=== PATIENT | male | born 1930 | race Caucasian/White ===

== ENCOUNTER 2019-05-25 05:39 | Inpatient (IN) | payer MEDICARE, BC, OTHER ==
[2019-05-25] MEDS ORDERED: Albuterol/Ipratropium NEB.SOL* Albuterol 2.5 MG/Ipratropium 0.5 MG 3 ML INH ONE (05:46)
[2019-05-25] MEDS ORDERED: Magnesium Sulfate 2 GM IV* 2 GM/50 ML BAG IVPB ONE (05:46)
[2019-05-25] MEDS ORDERED: methylPREDNISolone 125 MG* 2 ML VIAL IV ONE (05:46)
[2019-05-25 06:07] LABS: ABS Basophils 0.1 10^3/ul (0-0.2); ABS Eosinophils 0.4 10^3/ul (0-0.6); ABS Lymphocytes 0.7 10^3/ul (1.0-4.8); ABS Monocytes 0.7 10^3/ul (0-0.8); ABS Neutrophils 7.9 10^3/ul (1.5-7.7); Eosinophil % 3.8 %; Hematocrit 35 % (42-52); Hemoglobin 11.9 g/dL (14.0-18.0); Lymphocyte % 6.9 %; Mean Corpuscular HGB Conc 34 g/dL (31-36); Mean Corpuscular Hemoglobin 33 pg (27-31); Mean Corpuscular Volume 97 fL (80-94); Mean Platelet Volume 6.6 fL (7.4-10.4); Platelet Count 222 10^3/uL (150-450); Red Blood Count 3.58 10^6 /uL (4.18-5.48); Red Cell Distribution Width 15 % (10-15); White Blood Count 9.6 10^3/uL (3.5-10.8)
[2019-05-25 06:13] LABS: INR 1.09 (0.82-1.09)
[2019-05-25 06:25] LABS: Albumin 3.9 g/dL (3.2-5.2); Albumin/Globulin Ratio 1.3 (1-3); BUN/Creatinine Ratio 19.5 (8-20); Calcium 8.8 mg/dL (8.6-10.3); EGFR African American 70.8 (>60); EGFR Non-African American 58.5 (>60); Potassium 3.9 mmol/L (3.5-5.0); Total Bilirubin 0.6 mg/dL (0.2-1.0); Total Protein 6.9 g/dL (6.4-8.9)
[2019-05-25 06:27] LABS: Troponin I 0.01 ng/mL (<0.03)
[2019-05-25] MEDS ORDERED: Iodixanol* (CONTRAST) 320 MG/ML 100 ML SDV IV ONE (06:53)
[2019-05-25 07:51] LABS: Activated Partial Thrombo Time 33.1 seconds (26.0-38.0)
[2019-05-25 08:07] LABS: Influenza A Molecular NEGATIVE (Negative); Influenza B Molecular NEGATIVE (Negative)
[2019-05-25] MEDS ORDERED: Acetaminophen TAB* 325 MG PO PRN (09:43)
[2019-05-25] MEDS ORDERED: Albuterol 2.5 MG/3 ML NEB.SOL* (0.083%) INH PRN (09:43)
[2019-05-25] MEDS ORDERED: Benzonatate CAP* 100 MG PO PRN (09:43)
[2019-05-25] MEDS ORDERED: Ondansetron INJ* 2 MG/ML VIAL IV PRN (09:43)
--- NOTE | 2019-05-25 09:44 | ED ---
Shortness of Breath - HPI Summary HPI Summary: Pt is a 88yo otherwise healthy male presenting to the ED with acute onset SOB last evening. He states he has been traveling from [place], [place] to visit family and stopped in [place], [place] at a hotel. He awoke this morning and felt he was worse and attempting to catch his breath. He does not wear O2 at home and has never had this happen before. Denies choking or coughing. Denies fevers, sweats and chills. Takes baby aspirin daily, but denies hx of PE. Denies CHF. Unsure of all the medications he takes, but states he believes he also takes HTN medication. He was able to call ambulance today d/t SOB and he was placed on O2 by EMS after a 74 O2 on RA sat. Denies sick contacts. Denies recent illness. Immunizations UTD. Denies any weakness, abd pain, N/V/C/D, back pain or urinary sxs. - History of Current Complaint Chief Complaint: EDShortnessOfBreath Time Seen by Provider: 05/25/19 05:41 Hx Obtained From: Patient Onset/Duration: Sudden Onset Timing: Constant Current Severity: Severe Dyspnea At: Rest Aggravating Factors: Movement - Allergy/Home Medications Allergies/Adverse Reactions: Allergies Allergy/AdvReac Type Severity Reaction Status Date / Time Quinolones Allergy Unknown Verified 05/25/19 05:48 Reaction Details Home Medications: Home Medications Aspirin EC TAB* [Ecotrin EC Low Dose 81 MG*] 81 mg PO DAILY 05/25/19 [History Confirmed 05/25/19] Atorvastatin* [Lipitor*] 80 mg PO DAILY 05/25/19 [History Confirmed 05/25/19] Cholecalciferol TAB* [Vitamin D TAB*] 2,000 units PO DAILY 05/25/19 [History Confirmed 05/25/19] Cyanocobalamin TAB* [Vitamin B12 TAB*] 500 mcg PO DAILY 05/25/19 [History Confirmed 05/25/19] Isosorbide Mononitrate ER TAB* [Imdur ER TAB*] 60 mg PO DAILY 05/25/19 [History Confirmed 05/25/19] Levothyroxine TAB* [Synthroid TAB*] 125 mcg PO DAILY 05/25/19 [History Confirmed 05/25/19] Lisinopril TAB* [Prinivil TAB*] 40 mg PO DAILY 05/25/19 [History Confirmed 05/25] Pantoprazole TAB * [Protonix TAB*] 20 mg PO DAILY 05/25/19 [History Confirmed ] amLODIPine TAB* [Norvasc 5 mg TAB*] 10 mg PO DAILY 05/25/19 [History Confirmed 05/25/19] Albuterol HFA INHALER* [Ventolin HFA Inhaler*] 8.5 gm PO Q4HR PRN 05/26/19 [ History Confirmed 05/26/19] Fluticasone-Salmeterol 250-50* [Advair Diskus 250-50*] PO BID 05/26/19 [History] Levothyroxine TAB* 125 mcg PO DAILY 05/26/19 [History Confirmed 05/26/19] Metoprolol Succinate XL TAB* [Toprol XL TAB*] 25 mg PO BID 05/26/19 [History Confirmed 05/26/19] Potassium Chlor TAB* [Klor Con ER TAB 10 MEQ*] 3 tab PO DAILY 05/26/19 [History Confirmed 05/26/19] Tamsulosin CAP* [Flomax CAP*] 0.4 mg PO DAILY 05/26/19 [History Confirmed ] PMH/Surg Hx/FS Hx/Imm Hx Previously Healthy: Yes - Immunization History Hx Pertussis Vaccination: No Immunizations Up to Date: Yes Infectious Disease History: Yes Infectious Disease History: Denies: Traveled Outside the [place] in Last 30 Days - Social History Occupation: Unemployed Lives: Alone Alcohol Use: Weekly Alcohol Amount: 2-3x/week Hx Substance Use: No Substance Use Type: Reports: None Hx Tobacco Use: No Smoking Status (MU): Former Smoker Review of Systems Negative: Fever, Chills, Fatigue, Skin Diaphoresis Negative: Sore Throat, Ear Ache Negative: Palpitations, Chest Pain Positive: Shortness Of Breath. Negative: Cough Negative: Abdominal Pain, Vomiting, Diarrhea, Nausea Negative: Rash, Bruising Neurological: Negative All Other Systems Reviewed And Are Negative: Yes Physical Exam Triage Information Reviewed: Yes Vital Signs On Initial Exam: Initial Vitals Temp Pulse Resp BP Pulse Ox 98.8 F 84 12 151/75 93 05/25/19 05:40 05/25/19 05:40 05/25/19 05:40 05/25/19 05:40 05/25/19 05:40 Vital Signs Reviewed: Yes Appearance: Positive: Well-Appearing, Well-Nourished Skin: Positive: Warm, Skin Color Reflects Adequate Perfusion Head/Face: Positive: Normal Head/Face Inspection Eyes: Positive: EOMI, Conjunctiva Clear Respiratory/Lung Sounds: Positive: Other - crackles in the R lungs throughout Cardiovascular: Positive: RRR, Pulses are Symmetrical in both Upper and Lower Extremities. Negative: Tachycardia, Leg Edema Left, Leg Edema Right Musculoskeletal: Positive: Normal, Strength/ROM Intact Neurological: Positive: Sensory/Motor Intact, Alert, Oriented to Person Place, Time Psychiatric: Positive: Normal, Affect/Mood Appropriate Procedures - Sedation Patient Received Moderate/Deep Sedation with Procedure: No Diagnostics - Vital Signs Vital Signs Temp Pulse Resp BP Pulse Ox 05/25/19 09:11 86 16 144/70 91 05/25/19 09:00 89 23 92 05/25/19 08:41 81 18 135/68 93 05/25/19 08:11 89 18 142/71 91 05/25/19 08:00 96 22 90 05/25/19 07:41 85 20 139/67 91 05/25/19 07:12 90 19 140/65 91 05/25/19 07:06 89 18 145/72 86 05/25/19 07:04 93 84 05/25/19 06:12 82 19 93 05/25/19 06:11 84 17 142/68 94 05/25/19 05:57 84 16 98 05/25/19 05:40 98.8 F 84 12 151/75 93 - Laboratory Lab Results: Lab Results 05/25/19 05/25/19 05/25/19 Range/Units 05:46 06:00 06:00 WBC 9.6 (3.5-10.8) 10^3/uL RBC 3.58 L (4.18-5.48) 10^6 /uL Hgb 11.9 L (14.0-18.0) g/dL Hct 35 L (42-52) % MCV 97 H (80-94) fL MCH 33 H (27-31) pg MCHC 34 (31-36) g/dL RDW 15 (10-15) % Plt Count 222 (150-450) 10^3/uL MPV 6.6 L (7.4-10.4) fL Neut % (Auto) 81.7 % Lymph % (Auto) 6.9 % [place] % (Auto) 6.9 % Eos % (Auto) 3.8 % Baso % (Auto) 0.7 % Absolute Neuts (auto) 7.9 H (1.5-7.7) 10^3/ul Absolute Lymphs (auto) 0.7 L (1.0-4.8) 10^3/ul Absolute Monos (auto) 0.7 (0-0.8) 10^3/ul Absolute Eos (auto) 0.4 (0-0.6) 10^3/ul Absolute Basos (auto) 0.1 (0-0.2) 10^3/ul Absolute Nucleated RBC 0.0 10^3/ul Nucleated RBC % 0.0 INR (Anticoag Therapy) (0.82-1.09) APTT (26.0-38.0) seconds Sodium 140 (135-145) mmol/L Potassium 3.9 (3.5-5.0) mmol/L Chloride 110 (101-111) mmol/L Carbon Dioxide 22 (22-32) mmol/L Anion Gap 8 (2-11) mmol/L BUN 23 (6-24) mg/dL Creatinine 1.18 H (0.67-1.17) mg/dL Est GFR ( Amer) 70.8 (>60) Est GFR (Non-Af Amer) 58.5 (>60) BUN/Creatinine Ratio 19.5 (8-20) Glucose 114 H (70-100) mg/dL Lactic Acid (0.5-2.0) mmol/L Calcium 8.8 (8.6-10.3) mg/dL Total Bilirubin 0.60 (0.2-1.0) mg/dL AST 21 (13-39) U/L ALT 14 (7-52) U/L Alkaline Phosphatase 60 (34-104) U/L Troponin I 0.01 (<0.03) ng/mL B-Natriuretic Peptide (<=100) pg/mL Total Protein 6.9 (6.4-8.9) g/dL Albumin 3.9 (3.2-5.2) g/dL Globulin 3.0 (2-4) g/dL Albumin/Globulin Ratio 1.3 (1-3) Influenza A (Rapid) Negative (Negative) Influenza B (Rapid) Negative (Negative) 05/25/19 05/25/19 05/25/19 Range/Units 06:00 06:00 06:00 WBC (3.5-10.8) 10^3/uL RBC (4.18-5.48) 10^6 /uL Hgb (14.0-18.0) g/dL Hct (42-52) % MCV (80-94) fL MCH (27-31) pg MCHC (31-36) g/dL RDW (10-15) % Plt Count (150-450) 10^3/uL MPV (7.4-10.4) fL Neut % (Auto) % Lymph % (Auto) % [place] % (Auto) % Eos % (Auto) % Baso % (Auto) % Absolute Neuts (auto) (1.5-7.7) 10^3/ul Absolute Lymphs (auto) (1.0-4.8) 10^3/ul Absolute Monos (auto) (0-0.8) 10^3/ul Absolute Eos (auto) (0-0.6) 10^3/ul Absolute Basos (auto) (0-0.2) 10^3/ul Absolute Nucleated RBC 10^3/ul Nucleated RBC % INR (Anticoag Therapy) 1.09 (0.82-1.09) APTT 33.1 (26.0-38.0) seconds Sodium (135-145) mmol/L Potassium (3.5-5.0) mmol/L Chloride (101-111) mmol/L Carbon Dioxide (22-32) mmol/L Anion Gap (2-11) mmol/L BUN (6-24) mg/dL Creatinine (0.67-1.17) mg/dL Est GFR ( Amer) (>60) Est GFR (Non-Af Amer) (>60) BUN/Creatinine Ratio (8-20) Glucose (70-100) mg/dL Lactic Acid 0.6 (0.5-2.0) mmol/L Calcium (8.6-10.3) mg/dL Total Bilirubin (0.2-1.0) mg/dL AST (13-39) U/L ALT (7-52) U/L Alkaline Phosphatase (34-104) U/L Troponin I (<0.03) ng/mL B-Natriuretic Peptide 290 H (<=100) pg/mL Total Protein (6.4-8.9) g/dL Albumin (3.2-5.2) g/dL Globulin (2-4) g/dL Albumin/Globulin Ratio (1-3) Influenza A (Rapid) (Negative) Influenza B (Rapid) (Negative) Result Diagrams: 05/28/19 06:06 05/28/19 06:06 Lab Statement: Any lab studies that have been ordered have been reviewed, and results considered in the medical decision making process. Course/Dx - Course Course Of Treatment: On physical exam, patient appears well, and in NAD. Pt noted to have crackles over the R lung without adventitious sounds of the L lung. Kept on 4L in ED and sats 91-94%. Labs obtained which show a slightly low H and H with a BNP of 290. CXR obtained: EKG sinus rhythm with a rate of 81. Nonspecific intraventricular conduction delay. [id number]. Assessed for PE and CTA obtained. IMPRESSION: 1. LIMITED STUDY, NO EVIDENCE FOR CENTRAL PULMONARY EMBOLISM. 2. RIGHT UPPER LOBE INFILTRATE SUGGESTIVE OF PNEUMONIA. RECOMMEND FOLLOW-UP CHEST X-RAYS. TO RESOLUTION. 3. FINDINGS MOST CONSISTENT WITH SUPERIMPOSED PULMONARY EDEMA. 4. FINDINGS SUGGESTIVE OF PULMONARY ARTERY HYPERTENSION. 5. 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 6. ENLARGED MEDIASTINAL OR HILAR LYMPH NODES POSSIBLY REACTIVE, CONSIDER SARCOIDOSIS. ALTHOUGH A NEOPLASTIC PROCESS CANNOT BE RULED OUT. Pt continues to be hypoxic and discussed with Dr. Carrillo who will admit for hypoxia and PNA. Attempted to request records from [facility], however clinic is closed until Tuesday. - Diagnoses Provider Diagnoses: Hypoxia, Pneumonia Discharge ED - Sign-Out/Discharge Documenting (check all that apply): Patient Departure - Discharge Plan Condition: Fair Disposition: ADMITTED TO [facility] - Billing Disposition and Condition Condition: FAIR Disposition: Admitted to [facility] - Attestation Statements Provider Attestation: I was available for consult. This patient was seen by the BETTY. The patient was not presented to, seen by, or examined by me. Oleksandr Cruz MD
[2019-05-25 10:57] LABS: Folate 15.48 ng/mL (>3.99)
[2019-05-25] MEDS ORDERED: cefTRIAXone VIAL(*) 1,000 MG VIAL IVPB SCH (11:00)
[2019-05-25] MEDS: Enoxaparin(*) 40 MG/0.4 ML SYR SUBCUT SCH (11:10)
[2019-05-25] MEDS: Albuterol/Ipratropium NEB.SOL* Albuterol 2.5 MG/Ipratropium 0.5 MG 3 ML INH SCH ×3 (11:23→19:56)
--- NOTE | 2019-05-25 12:26 | ECHO ---
*[facility]* [place] [address] Fax #: [phone] Transthoracic Echocardiogram Patient: Tip Thorne : 1930 Study Date: 05/25/2019 Age: 88 Gender: M HR: 87 bpm Height: 74 in /188 cm BSA: 2.08 m^2 Weight: 179.6 lb /81.6 kg BMI: 23.1 kg/m^2 *Psychological Examiner: * Sheri Pyle [facility] *Referring Physician: * Tip Jones *Reading Physician: * Alan Ramos MD Indications: Congestive Heart Failure. History: Risk factors: Former tobacco use. Conclusions Summary: - Left ventricle: The cavity size is normal. Wall thickness is mildly increased. Systolic function is normal. The estimated ejection fraction is 60-65%. Minimal area of Hypokinesis of the distal apical inferior and distal inferior apical myocardium. Consider apical thinning/normal variant versus small remote infarct. Features are consistent with a pseudonormal left ventricular filling pattern, with concomitant abnormal relaxation and increased filling pressure (grade 2 diastolic dysfunction). - Right ventricle: Systolic pressure is moderately increased. - Left atrium: The atrium is severely dilated. - Atrial septum: The atrial septum appears aneurysmal. A PFO is demonstrated by color Doppler. - Mitral valve: The findings are consistent with mild stenosis due to restriction of the posterior leaflet due to annular calcium. There is mild regurgitation. The mean diastolic gradient is 5.0 mm Hg. The peak diastolic gradient is 10.0 mm Hg. The valve area by pressure half-time is 2.0 cm^2. - Aortic valve: The findings are consistent with mild stenosis. - Tricuspid valve: There is mild regurgitation. - Ascending aorta: The ascending aorta is mildly dilated. - Pericardium, extracardiac: There is a pleural effusion. - Pulmonary arteries: Systolic pressure is moderately increased. Study data: Transthoracic echocardiogram. Procedure: Transthoracic echocardiography was performed. Image quality was good. Complete 2D, spectral Doppler, and color flow Doppler. Location: Emergency department. Patient status: Inpatient. Patient room number: ED-12. No prior study is available for comparison. Rhythm: Normal sinus rhythm. Findings Left ventricle: The cavity size is normal. Wall thickness is mildly increased. Systolic function is normal. The estimated ejection fraction is 60-65%. Regional wall motion abnormalities: Minimal area of Hypokinesis of the distal apical inferior and distal inferior apical myocardium. Consider apical thinning/normal variant versus small remote infarct. Hypokinesis of the apical myocardium. Features are consistent with a pseudonormal left ventricular filling pattern, with concomitant abnormal relaxation and increased filling pressure (grade 2 diastolic dysfunction). Right ventricle: The cavity size is mildly dilated. Systolic function is normal. Systolic pressure is moderately increased. Left atrium: The atrium is severely dilated. Right atrium: The atrium is moderately dilated. Atrial septum: The atrial septum appears aneurysmal. A PFO is demonstrated by color Doppler. Mitral valve: The Mitral valve annulus appears calcified. The leaflets are mildly thickened. The findings are consistent with mild stenosis due to restriction of the posterior leaflet due to annular calcium. There is mild regurgitation. Aortic valve: The valve is trileaflet. The leaflets are mildly thickened. Thickening, consistent with sclerosis. Left coronary cusp mobility is mildly restricted. The findings are consistent with mild stenosis. There is trace regurgitation. Tricuspid valve: The leaflets are normal thickness. There is no evidence of stenosis. There is mild regurgitation. Pulmonic valve: The leaflets are normal thickness. There is no evidence of stenosis. There is trace regurgitation. Aorta: Aortic root: The aortic root is appears normal. Ascending aorta: The ascending aorta is mildly dilated. Aortic arch: The aortic arch is appears normal in size. Pericardium: The amount of pericardial fluid appears to be at the upper limits of normal. There is a pleural effusion. Pulmonary arteries: The main pulmonary artery is normal-sized. Systolic pressure is moderately increased. Systemic veins: Inferior vena cava: The vessel is mildly dilated. There is (>= 50%) respiratory change in the IVC dimension. Measurements Left ventricle Value Ref Aortic valve Value Ref VIMAL, LAX 5.2 cm 4.2 - 5.8 Aneesh diam, ED 2.5 cm ----- ESD, LAX 3.9 cm 2.5 - 4.0 Peak v, S 1.9 m/sec ----- FS, LAX (L) 24 % 25 - 43 VTI, S 40.3 cm ----- PW, ED, LAX (H) 1.1 cm 0.6 - 1.0 Mean grad, S 7.0 mm Hg ----- FS (L) 24 % 25 - 43 Peak grad, S 14.4 mm Hg ----- PW, ED (H) 1.1 cm 0.6 - 1.0 LVOT/AV, VTI ratio 0.69 ----- E', lat aneesh, TDI (L) 9.6 cm/sec >=10.0 BERRY, VTI 2.18 cm^2 --- -- E/e', lat aneesh, 16 BERRY, Vmax 2.28 cm^2 ----- TDI E', med aneesh, TDI 7.3 cm/sec >=7.0 Mitral valve Value Ref E/e', med aneesh, 21 Peak E 1.52 m/sec ----- TDI Peak A 1.62 m/sec ----- E', avg, TDI 8.5 cm/sec Decel time 306 ms ----- E/e', avg, TDI (H) 18 <=14 PHT 99 ms --- -- Mean grad, D 5.0 mm Hg ----- LVOT Value Ref Peak grad, D 10.0 mm Hg ----- Diam, S 2.00 cm Peak E/A ratio 0.9 ----- Area 3.1 cm^2 MVA, PHT 2.0 cm^2 ----- Peak humberto, S 1.38 m/sec VTI, S 28.0 cm Pulmonic valve Value Ref Peak grad, S 8 mm Hg Peak v, S 1.14 m/sec ----- Mean grad, S 4 mm Hg Peak grad, S 5.0 mm Hg ----- SV 88 ml SV/bsa 42 ml/m^2 Tricuspid valve Value Ref TR peak v (H) 3.2 m/sec <=2.8 Ventricular septum Value Ref Peak RV-RA grad, S 41 mm Hg ----- IVS, ED (H) 1.2 cm 0.6 - 1.0 Aortic root Value Ref Right ventricle Value Ref Root diam 3.4 cm <4.2 VIMAL, LAX 4.1 cm VIMAL minor ax, A4C (H) 3.6 cm 1.9 - 3.5 Ascending aorta Value Ref mid AAo AP diam, S 3.7 cm ----- Pressure, S 49 mm Hg Aortic arch Value Ref Left atrium Value Ref Arch diam 2.6 cm ----- AP dim, ES (H) 4.80 cm 3.00 - 4.00 Decending aorta Value Ref ML dim, A4C 5.5 cm Joelle peak humberto 0.59 m/sec ----- SI dim, A4C 7.2 cm Vol/bsa, ES, 1-p (H) 57 ml/m^2 12 - 37 Pulmonary artery Value Ref A4C Pressure, S 44.0 mm Hg ----- Vol/bsa, ES, A/L (H) 61 ml/m^2 16 - 34 Inferior vena cava Value Ref Right atrium Value Ref Diam 2.3 cm ----- SI dim, ES (H) 6.0 cm 3.4 - 5.3 ML dim, ES, A4C (H) 4.5 cm 2.6 - 4.4 Estimated RAP 8 mm Hg Legend: (L) and (H) carissa values outside specified reference range. Prepared and electronically signed by Alan Ramos MD 05/25/2019 12:25
[2019-05-25] MEDS: cefTRIAXone* 1 GM in NS 0.9% 50 ML BAG IVPB SCH (12:30)
--- NOTE | 2019-05-25 13:18 | HP ---
HISTORY AND PHYSICAL: DATE OF ADMISSION: 05/25/19 PRIMARY CARE DOCTOR: RUFINA Dior of [facility], phone number [phone]. MY ATTENDING PHYSICIAN WHILE IN THE HOSPITAL: Dr. Oracio Carrillo* (dictated by JAZZ Booker). OUTPATIENT DRYWALL APPLICATION SUPERVISOR: Dr. Ronald Butler, [place], [place]. CHIEF COMPLAINT: Shortness of breath x1 week. HISTORY OF PRESENT ILLNESS: Mr. Thorne is an 88-year-old male with past medical history significant for COPD non-oxygen dependent, WA in 2003, and hypertension, who presents to the emergency department from his hotel room after for approximately the past week he has noticed increased difficulty breathing accompanied by bilateral swelling in his legs and significantly decreased exercise tolerance. He states he is usually able to walk about 15 minutes on a treadmill without becoming short of breath, but now he is not able to walk very far at all being limited by shortness of breath and his activity level has gone down. Significantly related to this, he states there are no significant changes that he has noted in the last 2 weeks including changes to his diet, including high-salt meals, no changes to his medications. He has not missed any medications. No one around him has been sick. He did receive his flu shot this year. He has not had any fevers or chills. No upper respiratory symptoms. He has not had any cough per his report, but he does cough during the interview. He denies any sputum production. He has not had any subjective fevers or chills. He has not had any chest pain. The patient did not have any long car trips or immobilization ending 2 weeks ago, but has had again a decrease in his activity level related to his shortness of breath. The patient came into the emergency department due to worsening in his shortness breath to the point he did not feel like he is able to keep up with his breathing and inability to sleep overnight in his hotel room. At his hotel, the patient was found to be markedly hypoxic. He was placed on 5 L of oxygen and he was able to maintain his oxygen saturation above 90%. In the emergency department, the patient was given inhalers, steroids, magnesium, and had a CT of his chest, which showed significant interstitial opacification with a right upper lobe possible infiltrate as well as a bilateral pleural effusions and possible interstitial edema. Due to concern for acute hypoxic respiratory failure, we were asked to evaluate the patient for admission in the hospital. PAST MEDICAL HISTORY: COPD, history of WA, coronary artery disease, hypertension, hypothyroidism, GERD. PAST SURGICAL HISTORY: Stent in 2003. MEDICATIONS: 1. Synthroid 125 mcg p.o. daily. 2. Aspirin 81 mg p.o. daily. 3. Imdur 60 mg p.o. daily. 4. Protonix 40 mg p.o. daily. 5. Klor-Con 4 mEq p.o. daily. 6. Advair unknown dose 1 puff inhalation b.i.d. 7. Zyrtec 10 mg p.o. daily as needed. 8. Norvasc 10 mg p.o. daily as needed. 9. Lipitor 80 mg p.o. daily. 10. Lisinopril 40 mg p.o. daily. 11. Metoprolol 50 mg p.o. daily. 12. Vitamin B12 500 units p.o. daily. 13. Vitamin D 2000 units p.o. daily. 14. Tamsulosin 0.4 mg p.o. daily. FAMILY HISTORY: The patient's mother of brain tumor. The patient's father of suicide after being alcoholic. The patient has a brother and sister who are alive of approximately same age as him and have a "age-related complaints." SOCIAL HISTORY: The patient smoked for approximately 30 pack years, but quit 30 years ago. The patient drinks approximately 4 to 5 glasses of wine weekly. The patient used to use marijuana and LSD in college, but has not had any recent illicit drug use. 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 The patient is x2 and has 3 children. The patient's surrogate decision maker will be his daughter, Lupe Thorne. He would like to be a full code. REVIEW OF SYSTEMS: A 14-point review of systems reviewed and is negative except as above in the HPI. PHYSICAL EXAMINATION GENERAL: The patient is an 88-year-old male, who appears as stated age and sitting comfortably in the bed in no acute distress. VITAL SIGNS: At the time of evaluation, temperature 98.8, pulse rate 90, respiratory rate 18, oxygen saturation 95% on 5 L, blood pressure 142/71. HEENT: Head: Normocephalic, atraumatic. Sclerae anicteric. No conjunctival injection. Nasal mucosa moist. Oral mucosa moist. No pharyngeal erythema, discharge, or exudate. NECK: Supple, nontender. No lymphadenopathy. No carotid bruit auscultated. No JVD. RESPIRATORY: Slight expiratory wheezing heard in the right upper lobe. No other wheezes, rales, or rhonchi. Good air exchange bilaterally. HEART: Regular rate and rhythm. Grade 3/6 holosystolic murmur heard best at the apex. No adventitious lung sounds. Bilateral lower extremity edema, 2+ on the left, 3+ on the right. No bilateral calf tenderness noted. No palpable cords. Pulses 2+ in dorsalis pedis, posterior tibialis, and radial areas. ABDOMEN: Soft, nontender, nondistended. Bowel sounds present. Normoactive in all 4 quadrants. No hepatosplenomegaly. No abdominal bruits auscultated. No hepatojugular reflux. GENITOURINARY: No suprapubic tenderness or CVA tenderness. NEURO: Cranial nerves II through XII grossly intact. No focal deficits. Alert and oriented x3. SKIN: Clean, dry, intact. No rashes. PSYCHIATRIC: Pleasant and cooperative. DIAGNOSTIC STUDIES/LAB DATA: White blood cell count 9.6, hemoglobin 11.9, MCV 97, platelet count 222, INR 1.09, aPTT 33.1. Sodium 140, potassium 3.9, chloride 110, carbon dioxide 22, anion gap 9, BUN 23, creatinine 1.18, glucose 114, lactic acid 0.6, calcium 8.8, bilirubin 0.6, AST 21, ALT 14, alkaline phosphatase 60. Troponin I 0.01, BNP 290, protein 3.9, albumin 3.9, globulin 3.0. Influenza A and B negative. EKG shows normal sinus rhythm, signs of right-sided heart strain including S1Q3T3, no ST segment elevation or depression. No hypertrophy. Possible left atrial enlargement. Intraventricular conduction delay. Chest x-ray read as right upper lobe pneumonia, left lower lobe pneumonia with bilateral pleural effusions. Chest thorax CTA read as limited study. No evidence of central pulmonary embolism. Right upper lobe infiltrate suggestive of pneumonia. Recommend followup chest x- rays to resolution. Findings most consistent with superimposed pulmonary edema. 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 There are also moderate-sized pleural effusions noted in the body of the report. ASSESSMENT/PLAN/IMPRESSION: Mr. Thorne is an 88-year-old male with past medical significant for chronic obstructive pulmonary disease, coronary artery disease with myocardial infarction and hypertension, who presented to the emergency department with 1 week of worsening shortness of breath and hypoxic respiratory failure, who had been admitted to the hospital for oxygen therapy and treatment of mild chronic obstructive pulmonary disease exacerbation pneumonia and possible congestive heart failure exacerbation. 1. Acute hypoxic respiratory failure, components of likely pneumonia, congestive heart failure, and chronic obstructive pulmonary disease. The patient's chest CT is not specific for one pathology at this time. The patient does have pleural effusion with possible interstitial edema and does have lower extremity swelling. This could be related to right heart failure from chronic hypoxic lung disease that may or may not be untreated. An echocardiogram will help to evaluate this; however, this has gotten worse over the past week and it is possible that he is also having congestive heart failure exacerbation. Clarifying his ejection fraction will be useful. An echocardiogram has been ordered; this will also assess for signs of right-sided heart strain and to further elucidate the above-noted murmur. The patient has slight wheezing on exam after receiving steroids and inhalers. Based on the appearance of the patient's chest x-ray, pneumonia, particularly atypical causes of pneumonia are possible. The patient will be treated for community-acquired pneumonia. The patient had legionella and Strep pneumo antigen. The patient will also be diuresed, have strict I's and O's and daily weights. The patient will be continued on his blood pressure medications. The patient's troponin was negative and it does not appear that he is having acute myocardial infarction. There is possibility of sarcoidosis also on his chest CT, though this is already being treated given the patient will be getting steroids for his chronic obstructive pulmonary disease exacerbation; however, followup chest imaging should be undertaken through his radiation control technician to assess for possibility of this being a chronic cause. Given the patient's smoking history and asbestos history as well, the possibility of lung carcinoma is not excluded. Previous CT scan will tentatively be obtained from his radiation control technician' s records in order to assess and compare for this. The patient does have asymmetrical leg swelling and incomplete CTA of his chest. Lower extremity Dopplers will be obtained to assess for blood clot and further imaging of the chest will be considered in conjunction with the above-mentioned echocardiogram if there is a deep vein thrombosis. A consult will be requested from Dr. Santa García of Pulmonology if available. 2. History of myocardial infarction. Continue secondary prevention with Lipitor and aspirin. Check echocardiogram for possible heart failure, reduced ejection fraction. 3. Hypertension. Continue the patient's Imdur, lisinopril, metoprolol, and Norvasc. 4. Chronic obstructive pulmonary disease. Hold the patient's chronic inhalers at this time. Triple inhaler therapy may be indicated for this patient. 5. Hyperlipidemia. Continue the patient's Lipitor. 6. Hypothyroidism. Continue the patient's Synthroid. 7. DVT prophylaxis. Lovenox subcu. 8. FEN. The patient will have heart healthy diet without caffeine. No fluids are indicated at this time. TIME SPENT: Approximately 60 minutes were spent on this admission, 30 of which was spent [id number] with the patient obtaining history and physical and discussing treatment plan. This plan was discussed with my attending, Dr. Oracio Carrillo, and he is in agreement. JAZZ BOOKER [id number]/CPS #: [id number] MTDD
[2019-05-25] MEDS: DOXYcycline IV* 100 MG in NS 0.9% 250 ML* 250 ML IVPB SCH ×2 (14:37→23:47)
[2019-05-25] MEDS: Furosemide IV* 10 MG/ML VIAL (40 MG) IV SLOW PU SCH (17:08)
[2019-05-25] MEDS ORDERED: Albuterol/Ipratropium NEB.SOL* Albuterol 2.5 MG/Ipratropium 0.5 MG 3 ML INH PRN (20:22)
[2019-05-25] MEDS: guaiFENesin ER TAB 600 MG PO SCH (21:53)
[2019-05-25] MEDS: Metoprolol Tartrate TAB* 25 MG PO SCH (21:54)
[2019-05-26 05:45] LABS: ABS Lymphocytes 0.5 10^3/ul (1.0-4.8); ABS Monocytes 0.7 10^3/ul (0-0.8); ABS Neutrophils 11.1 10^3/ul (1.5-7.7); Eosinophil % 0.1 %; Hematocrit 33 % (42-52); Hemoglobin 11.3 g/dL (14.0-18.0); Lymphocyte % 3.8 %; Mean Corpuscular HGB Conc 34 g/dL (31-36); Mean Corpuscular Hemoglobin 33 pg (27-31); Mean Corpuscular Volume 98 fL (80-94); Mean Platelet Volume 6.5 fL (7.4-10.4); Platelet Count 202 10^3/uL (150-450); Red Blood Count 3.42 10^6 /uL (4.18-5.48); Red Cell Distribution Width 15 % (10-15); White Blood Count 12.3 10^3/uL (3.5-10.8)
[2019-05-26 06:04] LABS: BUN/Creatinine Ratio 24.8 (8-20); Calcium 8.8 mg/dL (8.6-10.3); EGFR African American 71.5 (>60); EGFR Non-African American 59.1 (>60); Magnesium 1.9 mg/dL (1.9-2.7)
[2019-05-26] MEDS: Levothyroxine TAB* 125 MCG TAB PO SCH (06:04)
[2019-05-26] MEDS: Furosemide IV* 10 MG/ML VIAL (40 MG) IV SLOW PU SCH ×2 (08:16→16:43)
[2019-05-26] MEDS: Pantoprazole TAB * 40 MG TAB PO SCH (08:17)
[2019-05-26] MEDS: Metoprolol Tartrate TAB* 25 MG PO SCH ×2 (08:17→22:04)
[2019-05-26] MEDS: Aspirin EC TAB* 81 MG TAB.EC PO SCH (08:17)
[2019-05-26] MEDS: Cyanocobalamin TAB* 500 MCG PO SCH (08:17)
[2019-05-26] MEDS: Isosorbide Mononitrate ER TAB* 60 MG PO SCH (08:17)
[2019-05-26] MEDS: Atorvastatin* 80 MG TAB PO SCH (08:17)
[2019-05-26] MEDS: amLODIPine TAB* 5 MG PO SCH (08:17)
[2019-05-26] MEDS: Lisinopril TAB* 10 MG PO SCH (08:18)
[2019-05-26] MEDS: guaiFENesin ER TAB 600 MG PO SCH ×2 (08:18→22:04)
[2019-05-26] MEDS: Enoxaparin(*) 40 MG/0.4 ML SYR SUBCUT SCH (08:18)
[2019-05-26] MEDS: Cholecalciferol TAB* 1000 UNITS PO SCH (08:18)
[2019-05-26] MEDS: cefTRIAXone* 1 GM in NS 0.9% 50 ML BAG IVPB SCH (11:45)
--- NOTE | 2019-05-26 12:35 | PN ---
Subjective Date of Service: 05/26/19 Interval History: patient continues to report shortness of breath worse with exertion. denies fever or chills overnight. Denies abd pain n/v/d. Reports that he is upset about medication list, reports that he only has an old list in wallet that is not accurate and is concerned that he is not receiving the correct medications. Reports that he is feeling very anxious about this. Nursing staff notified and will obtain medication list from [facility] pharmacy. Patient reported to nursing staff that he had chest pressure. Patient was re-evaluated at bedside, states that he had pressure in his chest lasted a few seconds and now is resolved. Patient reports that he believes that it is related to his anxiety. EKG - ordered - no changes from previous EKG. Family History: Unchanged from Admission Social History: Unchanged from Admission Past Medical History: Unchanged from Admission Objective Active Medications: Acetaminophen (Tylenol Tab*) 650 mg PO Q6H PRN PRN Reason: MILD PAIN or TEMP > 100.4 Albuterol/Ipratropium (Duoneb (Albuterol 2.5 Mg/Ipratropium 0.5 Mg)) 1 neb INH Q4H PRN PRN Reason: SOB/WHEEZING Amlodipine Besylate (Norvasc Tab*) 10 mg PO DAILY [facility] Last Admin: 05/26/19 08:17 Dose: 10 mg Aspirin (Aspirin Ec Tab*) 81 mg PO DAILY [facility] Last Admin: 05/26/19 08:17 Dose: 81 mg Atorvastatin Calcium (Lipitor*) 80 mg PO DAILY [facility] Last Admin: 05/26/19 08:17 Dose: 80 mg Benzonatate (Tessalon Cap*) 100 mg PO BID PRN PRN Reason: COUGH Cholecalciferol (Vitamin D Tab*) 2,000 units PO DAILY [facility] Last Admin: 05/26/19 08:18 Dose: 2,000 units Cyanocobalamin (Vitamin B12 Tab*) 500 mcg PO DAILY [facility] Last Admin: 05/26/19 08:17 Dose: 500 mcg Enoxaparin Sodium (Lovenox(*)) 40 mg SUBCUT DAILY [facility] Last Admin: 05/26/19 08:18 Dose: 40 mg Furosemide (Lasix Iv*) 40 mg IV SLOW PU 0800,1700 [facility] Last Admin: 05/26/19 08:16 Dose: 40 mg Guaifenesin (Mucinex*) 1,200 mg PO BID [facility] Last Admin: 05/26/19 08:18 Dose: 1,200 mg Doxycycline Hyclate 100 mg/ (Sodium Chloride) 250 mls @ 250 mls/hr IVPB Q12H [facility] Last Admin: 05/25/19 23:47 Dose: 250 mls/hr Ceftriaxone Sodium 1 gm/ (Sodium Chloride) 50 mls @ 100 mls/hr IVPB Q24H [facility] Last Admin: 05/26/19 11:45 Dose: 100 mls/hr Isosorbide Mononitrate (Imdur Er Tab*) 60 mg PO DAILY [facility] Last Admin: 05/26/19 08:17 Dose: 60 mg Levothyroxine Sodium (Synthroid Tab*) 125 mcg PO DAILY@0600 [facility] Last Admin: 05/26/19 06:04 Dose: 125 mcg Lisinopril (Prinivil Tab*) 40 mg PO DAILY [facility] Last Admin: 05/26/19 08:18 Dose: 40 mg Metoprolol Tartrate (Lopressor Tab*) 25 mg PO BID [facility] Last Admin: 05/26/19 08:17 Dose: 25 mg Ondansetron HCl (Zofran Inj*) 4 mg IV Q6H PRN PRN Reason: NAUSEA Pantoprazole Sodium (Protonix Tab*) 40 mg PO DAILY [facility] Last Admin: 05/26/19 08:17 Dose: 40 mg Prednisone (Deltasone Tab*) 60 mg PO DAILY [facility] Last Admin: 05/26/19 08:18 Dose: 60 mg Vital Signs - 8 hr 05/26/19 05/26/19 05/26/19 07:25 08:00 10:41 Temperature 98.4 F 97.4 F Pulse Rate 87 81 Respiratory 16 16 16 Rate Blood Pressure 134/66 137/62 (mmHg) O2 Sat by Pulse 94 98 Oximetry Oxygen Devices in Use Now: Nasal Cannula Appearance: alert and oriented x 3, no acute distress Eyes: No Scleral Icterus Ears/Nose/Mouth/Throat: Clear Oropharnyx, Mucous Membranes Moist Neck: NL Appearance and Movements; NL JVP, Trachea Midline Respiratory: Symmetrical Chest Expansion and Respiratory Effort, - - t/o bilat with few exp wheezes Cardiovascular: NL Sounds; No Murmurs; No JVD Abdominal: NL Sounds; No Tenderness; No Distention Extremities: No Clubbing, Cyanosis, - - + 2 pitting edema to bilat lower legs Skin: No Rash or Ulcers Neurological: Alert and Oriented x 3 Nutrition: Taking PO's Result Diagrams: 05/27/19 06:06 05/26/19 05:29 Additional Lab and Data: Lab Results 05/25/19 05/25/19 05/25/19 Range/Units 05:46 06:00 06:00 WBC 9.6 (3.5-10.8) 10^3/uL RBC 3.58 L (4.18-5.48) 10^6 /uL Hgb 11.9 L (14.0-18.0) g/dL Hct 35 L (42-52) % MCV 97 H (80-94) fL MCH 33 H (27-31) pg MCHC 34 (31-36) g/dL RDW 15 (10-15) % Plt Count 222 (150-450) 10^3/uL MPV 6.6 L (7.4-10.4) fL Neut % (Auto) 81.7 % Lymph % (Auto) 6.9 % Dane % (Auto) 6.9 % Eos % (Auto) 3.8 % Baso % (Auto) 0.7 % Absolute Neuts (auto) 7.9 H (1.5-7.7) 10^3/ul Absolute Lymphs (auto) 0.7 L (1.0-4.8) 10^3/ul Absolute Monos (auto) 0.7 (0-0.8) 10^3/ul Absolute Eos (auto) 0.4 (0-0.6) 10^3/ul Absolute Basos (auto) 0.1 (0-0.2) 10^3/ul Absolute Nucleated RBC 0.0 10^3/ul Nucleated RBC % 0.0 INR (Anticoag Therapy) (0.82-1.09) APTT (26.0-38.0) seconds Sodium 140 (135-145) mmol/L Potassium 3.9 (3.5-5.0) mmol/L Chloride 110 (101-111) mmol/L Carbon Dioxide 22 (22-32) mmol/L Anion Gap 8 (2-11) mmol/L BUN 23 (6-24) mg/dL Creatinine 1.18 H (0.67-1.17) mg/dL Est GFR ( Amer) 70.8 (>60) Est GFR (Non-Af Amer) 58.5 (>60) BUN/Creatinine Ratio 19.5 (8-20) Glucose 114 H (70-100) mg/dL Lactic Acid (0.5-2.0) mmol/L Calcium 8.8 (8.6-10.3) mg/dL Total Bilirubin 0.60 (0.2-1.0) mg/dL AST 21 (13-39) U/L ALT 14 (7-52) U/L Alkaline Phosphatase 60 (34-104) U/L Troponin I 0.01 (<0.03) ng/mL B-Natriuretic Peptide (<=100) pg/mL Total Protein 6.9 (6.4-8.9) g/dL Albumin 3.9 (3.2-5.2) g/dL Globulin 3.0 (2-4) g/dL Albumin/Globulin Ratio 1.3 (1-3) Influenza A (Rapid) Negative (Negative) Influenza B (Rapid) Negative (Negative) 05/25/19 05/25/19 05/25/19 Range/Units 06:00 06:00 06:00 WBC (3.5-10.8) 10^3/uL RBC (4.18-5.48) 10^6 /uL Hgb (14.0-18.0) g/dL Hct (42-52) % MCV (80-94) fL MCH (27-31) pg MCHC (31-36) g/dL RDW (10-15) % Plt Count (150-450) 10^3/uL MPV (7.4-10.4) fL Neut % (Auto) % Lymph % (Auto) % Dane % (Auto) % Eos % (Auto) % Baso % (Auto) % Absolute Neuts (auto) (1.5-7.7) 10^3/ul Absolute Lymphs (auto) (1.0-4.8) 10^3/ul Absolute Monos (auto) (0-0.8) 10^3/ul Absolute Eos (auto) (0-0.6) 10^3/ul Absolute Basos (auto) (0-0.2) 10^3/ul Absolute Nucleated RBC 10^3/ul Nucleated RBC % INR (Anticoag Therapy) 1.09 (0.82-1.09) APTT 33.1 (26.0-38.0) seconds Sodium (135-145) mmol/L Potassium (3.5-5.0) mmol/L Chloride (101-111) mmol/L Carbon Dioxide (22-32) mmol/L Anion Gap (2-11) mmol/L BUN (6-24) mg/dL Creatinine (0.67-1.17) mg/dL Est GFR ( Amer) (>60) Est GFR (Non-Af Amer) (>60) BUN/Creatinine Ratio (8-20) Glucose (70-100) mg/dL Lactic Acid 0.6 (0.5-2.0) mmol/L Calcium (8.6-10.3) mg/dL Total Bilirubin (0.2-1.0) mg/dL AST (13-39) U/L ALT (7-52) U/L Alkaline Phosphatase (34-104) U/L Troponin I (<0.03) ng/mL B-Natriuretic Peptide 290 H (<=100) pg/mL Total Protein (6.4-8.9) g/dL Albumin (3.2-5.2) g/dL Globulin (2-4) g/dL Albumin/Globulin Ratio (1-3) Influenza A (Rapid) (Negative) Influenza B (Rapid) (Negative) Microbiology and Other Data: Microbiology 05/26/19 05:47 Gram Stain - Final Sputum 05/25/19 17:15 Legionella Urinary Antigen - Final Urine Negative Legionella Antigen Streptococcus pneumoniae Ag Screen - Final Negative S. pneumo Antigen Assess/Plan/Problems-Billing Assessment: Mr. Thorne is an 88 y.o male with pmhx significant for htn, [place] 2004 and copd who presented to the ER with shortness of breath and leg swelling. - Patient Problems (1) Respiratory failure with hypoxia Current Visit: Yes Status: Acute Code(s): J96.91 - RESPIRATORY FAILURE, UNSPECIFIED WITH HYPOXIA SNOMED Code(s): 09921717930448747 Comment: Likely a combination of RUL pneumonia and exacerbation of COPD, with possibe underlying CHF -Will contiue to treat with doxycycline and ceftriaxone - Blood culture pending - Urine Negative for strep and legionella - Sputum with gram negative coccobacilli - continue breathing treatments and supplemental oxygen as needed (2) COPD (chronic obstructive pulmonary disease) Current Visit: Yes Status: Acute Code(s): J44.9 - CHRONIC OBSTRUCTIVE PULMONARY DISEASE, UNSPECIFIED SNOMED Code(s): 78131378 Comment: - will continue nebs - continue prednisone (3) HTN (hypertension) Current Visit: Yes Status: Acute Code(s): I10 - ESSENTIAL (PRIMARY) HYPERTENSION SNOMED Code(s): 72893591 Comment: continue imdur, lisinopril and metoprolol (4) Hypothyroid Current Visit: Yes Status: Acute Code(s): E03.9 - HYPOTHYROIDISM, UNSPECIFIED SNOMED Code(s): 38426675 Comment: continue levothyroxine (5) DVT prophylaxis Current Visit: Yes Status: Acute Code(s): Z29.9 - ENCOUNTER FOR PROPHYLACTIC MEASURES, UNSPECIFIED SNOMED Code(s): 806431759 Comment: lovenox (6) Full code status Current Visit: Yes Status: Acute Code(s): Z78.9 - OTHER SPECIFIED HEALTH STATUS SNOMED Code(s): 959185049 Status and Disposition: discharge home when medically stable
[2019-05-26] MEDS: DOXYcycline IV* 100 MG in NS 0.9% 250 ML* 250 ML IVPB SCH (12:58)
[2019-05-27] MEDS ORDERED: Nitroglycerin TAB 0.4 MG* 0.4 MG TAB SL ONE (03:38)
[2019-05-27] MEDS ORDERED: Nitroglycerin TAB 0.4 MG* 0.4 MG TAB ONE (03:40)
[2019-05-27] MEDS: DOXYcycline IV* 100 MG in NS 0.9% 250 ML* 250 ML IVPB SCH ×2 (03:43→13:10)
[2019-05-27] MEDS: Furosemide IV* 10 MG/ML VIAL (40 MG) IV SLOW PU SCH ×2 (07:51→16:43)
[2019-05-27] MEDS: Levothyroxine TAB* 125 MCG TAB PO SCH (07:51)
[2019-05-27 07:53] LABS: Hematocrit 36 % (42-52); Hemoglobin 12.2 g/dL (14.0-18.0); Mean Corpuscular HGB Conc 34 g/dL (31-36); Mean Corpuscular Hemoglobin 33 pg (27-31); Mean Corpuscular Volume 97 fL (80-94); Mean Platelet Volume 7.1 fL (7.4-10.4); Platelet Count 233 10^3/uL (150-450); Red Blood Count 3.69 10^6 /uL (4.18-5.48); Red Cell Distribution Width 15 % (10-15); White Blood Count 14.6 10^3/uL (3.5-10.8)
[2019-05-27] MEDS: Isosorbide Mononitrate ER TAB* 60 MG PO SCH (09:35)
[2019-05-27] MEDS: Tamsulosin CAP* 0.4 MG PO SCH (09:35)
[2019-05-27] MEDS: Lisinopril TAB* 10 MG PO SCH (09:38)
[2019-05-27] MEDS: Atorvastatin* 80 MG TAB PO SCH (09:38)
[2019-05-27] MEDS: amLODIPine TAB* 5 MG PO SCH (09:38)
[2019-05-27] MEDS: Pantoprazole TAB * 40 MG TAB PO SCH (09:40)
[2019-05-27] MEDS: Cholecalciferol TAB* 1000 UNITS PO SCH (09:40)
[2019-05-27 09:41] LABS: Troponin I 0.03 ng/mL (<0.03)
[2019-05-27] MEDS: Aspirin EC TAB* 81 MG TAB.EC PO SCH (09:42)
[2019-05-27] MEDS: Metoprolol Tartrate TAB* 25 MG PO SCH ×2 (09:42→21:03)
[2019-05-27] MEDS: guaiFENesin ER TAB 600 MG PO SCH ×2 (09:43→21:04)
[2019-05-27] MEDS: Cyanocobalamin TAB* 500 MCG PO SCH (09:43)
[2019-05-27] MEDS: Enoxaparin(*) 40 MG/0.4 ML SYR SUBCUT SCH (10:50)
[2019-05-27] MEDS: cefTRIAXone* 1 GM in NS 0.9% 50 ML BAG IVPB SCH (12:17)
--- NOTE | 2019-05-27 15:53 | PN ---
Subjective Date of Service: 05/27/19 Interval History: Patient today feels persistently SOB, but states he feels better than yesterday. Patient has scant cough and is mildly productive of sputum. Patient denies dizziness on standing. Patient denies F/C, N/V, abdominal pain, diarrhea , CP, or other pain. Patient states his CP overnight was pleuritic and mild and has not recurred. Family History: Unchanged from Admission Social History: Unchanged from Admission Past Medical History: Unchanged from Admission Objective Active Medications: Acetaminophen (Tylenol Tab*) 650 mg PO Q6H PRN PRN Reason: MILD PAIN or TEMP > 100.4 Last Admin: 05/27/19 09:46 Dose: 650 mg Albuterol/Ipratropium (Duoneb (Albuterol 2.5 Mg/Ipratropium 0.5 Mg)) 1 neb INH Q4H PRN PRN Reason: SOB/WHEEZING Amlodipine Besylate (Norvasc Tab*) 10 mg PO DAILY [facility] Last Admin: 05/27/19 09:38 Dose: 10 mg Aspirin (Aspirin Ec Tab*) 81 mg PO DAILY [facility] Last Admin: 05/27/19 09:42 Dose: 81 mg Atorvastatin Calcium (Lipitor*) 80 mg PO DAILY [facility] Last Admin: 05/27/19 09:38 Dose: 80 mg Benzonatate (Tessalon Cap*) 100 mg PO BID PRN PRN Reason: COUGH Cholecalciferol (Vitamin D Tab*) 2,000 units PO DAILY [facility] Last Admin: 05/27/19 09:40 Dose: 2,000 units Cyanocobalamin (Vitamin B12 Tab*) 500 mcg PO DAILY [facility] Last Admin: 05/27/19 09:43 Dose: 500 mcg Enoxaparin Sodium (Lovenox(*)) 40 mg SUBCUT DAILY [facility] Last Admin: 05/27/19 10:50 Dose: 40 mg Furosemide (Lasix Iv*) 40 mg IV SLOW PU 0800,1700 [facility] Last Admin: 05/27/19 07:51 Dose: 40 mg Guaifenesin (Mucinex*) 1,200 mg PO BID [facility] Last Admin: 05/27/19 09:43 Dose: 1,200 mg Doxycycline Hyclate 100 mg/ (Sodium Chloride) 250 mls @ 250 mls/hr IVPB Q12H [facility] Last Admin: 05/27/19 13:10 Dose: 250 mls/hr Ceftriaxone Sodium 1 gm/ (Sodium Chloride) 50 mls @ 100 mls/hr IVPB Q24H [facility] Last Admin: 05/27/19 12:17 Dose: 100 mls/hr Isosorbide Mononitrate (Imdur Er Tab*) 60 mg PO DAILY [facility] Last Admin: 05/27/19 09:35 Dose: 60 mg Levothyroxine Sodium (Synthroid Tab*) 125 mcg PO DAILY@0600 [facility] Last Admin: 05/27/19 07:51 Dose: 125 mcg Lisinopril (Prinivil Tab*) 40 mg PO DAILY [facility] Last Admin: 05/27/19 09:38 Dose: 40 mg Metoprolol Tartrate (Lopressor Tab*) 25 mg PO BID [facility] Last Admin: 05/27/19 09:42 Dose: 25 mg Ondansetron HCl (Zofran Inj*) 4 mg IV Q6H PRN PRN Reason: NAUSEA Pantoprazole Sodium (Protonix Tab*) 40 mg PO DAILY [facility] Last Admin: 05/27/19 09:40 Dose: 40 mg Prednisone (Deltasone Tab*) 60 mg PO DAILY [facility] Last Admin: 05/27/19 09:39 Dose: 60 mg Tamsulosin HCl (Flomax Cap*) 0.4 mg PO DAILY [facility] Last Admin: 05/27/19 09:35 Dose: 0.4 mg Vital Signs - 8 hr 05/27/19 05/27/19 05/27/19 08:00 08:42 11:41 Temperature 97.9 F Pulse Rate 96 69 Respiratory 20 18 Rate Blood Pressure 110/58 (mmHg) O2 Sat by Pulse 92 93 Oximetry 05/27/19 15:24 Temperature 98.0 F Pulse Rate 75 Respiratory 18 Rate Blood Pressure 121/61 (mmHg) O2 Sat by Pulse 94 Oximetry Oxygen Devices in Use Now: Nasal Cannula Appearance: Patient is an 88yo male who appears stated age and is sitting in the bed in [facility]. Eyes: No Scleral Icterus, PERRLA Ears/Nose/Mouth/Throat: NL Teeth, Lips, Gums, Clear Oropharnyx, Mucous Membranes Moist Neck: NL Appearance and Movements; NL JVP, Trachea Midline Respiratory: Symmetrical Chest Expansion and Respiratory Effort, - - Rhonchi and slight wheezes throughout. Cardiovascular: NL Sounds; No Murmurs; No JVD, RRR, No Edema Abdominal: NL Sounds; No Tenderness; No Distention, No Hepatosplenomegaly Lymphatic: No Cervical Adenopathy Extremities: No Edema, No Clubbing, Cyanosis Skin: No Rash or Ulcers, No Nodules or Sclerosis Neurological: Alert and Oriented x 3, NL Sensation, NL Muscle Strength and Tone , - - CN II-XII intact. Result Diagrams: 05/27/19 06:06 05/26/19 05:29 Additional Lab and Data: Lab Results Microbiology and Other Data: Microbiology 05/26/19 05:47 Gram Stain - Final Sputum 05/25/19 17:15 Legionella Urinary Antigen - Final Urine Negative Legionella Antigen Streptococcus pneumoniae Ag Screen - Final Negative S. pneumo Antigen Assess/Plan/Problems-Billing Assessment: Mr. Thorne is an 88 y.o male with pmhx significant for htn, [place] 2004 and copd who presented to the ER with shortness of breath and leg swelling. - Patient Problems (1) Respiratory failure with hypoxia Current Visit: Yes Status: Acute Code(s): J96.91 - RESPIRATORY FAILURE, UNSPECIFIED WITH HYPOXIA SNOMED Code(s): 47409926999138104 Comment: - Likely a combination of RUL pneumonia and exacerbation of COPD, with possibe underlying CHF -Will contiue to treat with doxycycline and ceftriaxone - Blood culture pending - Urine Negative for strep and legionella - Sputum with gram negative coccobacilli, likely H. flu. - Continue breathing treatments and supplemental oxygen as needed (2) COPD (chronic obstructive pulmonary disease) Current Visit: Yes Status: Acute Code(s): J44.9 - CHRONIC OBSTRUCTIVE PULMONARY DISEASE, UNSPECIFIED SNOMED Code(s): 82476125 Comment: - Will continue nebs - Continue prednisone - Improved Wheezing today (3) HTN (hypertension) Current Visit: Yes Status: Acute Code(s): I10 - ESSENTIAL (PRIMARY) HYPERTENSION SNOMED Code(s): 69459652 Comment: - Continue imdur, lisinopril and metoprolol (4) Hypothyroid Current Visit: Yes Status: Acute Code(s): E03.9 - HYPOTHYROIDISM, UNSPECIFIED SNOMED Code(s): 58330529 Comment: - Continue levothyroxine (5) DVT prophylaxis Current Visit: Yes Status: Acute Code(s): Z29.9 - ENCOUNTER FOR PROPHYLACTIC MEASURES, UNSPECIFIED SNOMED Code(s): 174858300 Comment: - Lovenox SubQ (6) Full code status Current Visit: Yes Status: Acute Code(s): Z78.9 - OTHER SPECIFIED HEALTH STATUS SNOMED Code(s): 780122265 Status and Disposition: Discharge Home When Medically Stable.
[2019-05-27 16:38] LABS: Troponin I 0.04 ng/mL (<0.03)
[2019-05-28] MEDS: DOXYcycline IV* 100 MG in NS 0.9% 250 ML* 250 ML IVPB SCH (00:44)
[2019-05-28] MEDS: Levothyroxine TAB* 125 MCG TAB PO SCH (05:51)
[2019-05-28 06:27] LABS: ABS Lymphocytes 0.8 10^3/ul (1.0-4.8); ABS Monocytes 1.1 10^3/ul (0-0.8); ABS Neutrophils 9.2 10^3/ul (1.5-7.7); Hematocrit 34 % (42-52); Hemoglobin 11.9 g/dL (14.0-18.0); Lymphocyte % 7.6 %; Mean Corpuscular HGB Conc 35 g/dL (31-36); Mean Corpuscular Hemoglobin 34 pg (27-31); Mean Corpuscular Volume 97 fL (80-94); Mean Platelet Volume 6.9 fL (7.4-10.4); Platelet Count 210 10^3/uL (150-450); Red Blood Count 3.56 10^6 /uL (4.18-5.48); Red Cell Distribution Width 14 % (10-15); White Blood Count 11.2 10^3/uL (3.5-10.8)
[2019-05-28 06:45] LABS: Anion Gap 7 mmol/L (2-11); BUN/Creatinine Ratio 31.9 (8-20); Blood Urea Nitrogen 38 mg/dL (6-24); CO2 Carbon Dioxide 27 mmol/L (22-32); Calcium 8.7 mg/dL (8.6-10.3); Chloride 105 mmol/L (101-111); EGFR African American 70.1 (>60); Glucose 101 mg/dL (70-100); Magnesium 1.8 mg/dL (1.9-2.7); Potassium 3.2 mmol/L (3.5-5.0); Sodium 139 mmol/L (135-145)
[2019-05-28 06:49] LABS: Troponin I 0.03 ng/mL (<0.03)
[2019-05-28] MEDS ORDERED: Magnesium Sulfate 1 GM IV* 1 GM/100 ML BAG IV ONE (08:03)
[2019-05-28] MEDS: Enoxaparin(*) 40 MG/0.4 ML SYR SUBCUT SCH (08:05)
[2019-05-28] MEDS: Cholecalciferol TAB* 1000 UNITS PO SCH (08:05)
[2019-05-28] MEDS: Furosemide IV* 10 MG/ML VIAL (40 MG) IV SLOW PU SCH (08:05)
[2019-05-28] MEDS: Atorvastatin* 80 MG TAB PO SCH (08:06)
[2019-05-28] MEDS: Metoprolol Tartrate TAB* 25 MG PO SCH ×2 (08:06→21:48)
[2019-05-28] MEDS: Pantoprazole TAB * 40 MG TAB PO SCH (08:06)
[2019-05-28] MEDS: amLODIPine TAB* 5 MG PO SCH (08:06)
[2019-05-28] MEDS: Lisinopril TAB* 10 MG PO SCH (08:06)
[2019-05-28] MEDS: Aspirin EC TAB* 81 MG TAB.EC PO SCH (08:06)
[2019-05-28] MEDS: Tamsulosin CAP* 0.4 MG PO SCH (08:07)
[2019-05-28] MEDS: guaiFENesin ER TAB 600 MG PO SCH ×2 (08:07→21:48)
[2019-05-28] MEDS: Cyanocobalamin TAB* 500 MCG PO SCH (08:07)
[2019-05-28] MEDS: Isosorbide Mononitrate ER TAB* 60 MG PO SCH (08:07)
[2019-05-28] MEDS ORDERED: Furosemide IV* 10 MG/ML VIAL (40 MG) IV SLOW PU SCH (09:00)
[2019-05-28] MEDS: Potassium Chloride* LIQUID 20 MEQ/15 ML UDC PO SCH (09:01)
[2019-05-28] MEDS ORDERED: Azithromycin 500 mg/250 ml NS 500 MG/250 ML BAG IVPB ONE (10:30)
[2019-05-28] MEDS: methylPREDNISolone 125 MG* 2 ML VIAL IV SCH ×2 (10:49→21:50)
[2019-05-28] MEDS: Cefepime 2 GM in Dextrose(*) 2 GM/50 ML BAG IV SCH ×2 (10:50→23:33)
--- NOTE | 2019-05-28 12:18 | CONS ---
PULMONARY CONSULTATION REPORT: DATE OF CONSULT: 05/28/19 CONSULTATION REQUESTED BY: JAZZ Duvall. REASON FOR CONSULT: Evaluation of hypoxemic respiratory failure and abnormal CT chest. HISTORY OF PRESENT ILLNESS: The patient is an 88-year-old male, former smoker with a history of COPD, not on oxygen at home, history of coronary artery disease. The patient presents for evaluation of worsening shortness of breath over the past week. The patient denies significant shortness of breath or limitation at baseline due to his underlying COPD. The patient reports feeling run down with generalized weakness for a week prior to the presentation. He also had increased dyspnea with exertion and was limited by his activities of daily living. The patient presented to the emergency room for further evaluation. The patient was found to be hypoxemic with O2 saturations of 90% on 5 L. The patient was given inhalers, steroids in the emergency room. Further evaluation included chest x-ray and CT scan of the chest. I personally reviewed chest x-ray and CT scan of the chest with the patient today. The patient noted to have significant airspace opacities in the upper lobes, predominantly on the right side. The patient also with ground-glass opacities at the bases and bilateral pleural effusions, right greater than left. There are also areas of dense consolidation at the bases bilaterally. No evidence of pulmonary embolism noted. The patient with evidence of [id number] centrilobular emphysematous changes. The patient also with evidence of thickening of interstitium in the upper lobe. Mildly prominent mediastinal lymph nodes were also seen. Enlarged hilar lymph nodes were also obvious. Repeat chest x-ray from 05/27/19 showed slight progression of the airspace opacities in the upper lung zones. The patient admitted with a diagnosis of pneumonia. He also has required O2 supplementation at some point with 10 L O2. Blood gas analysis showed pH of 7.51, pCO2 of 33, pO2 of 60 while on O2 supplementation at 4 L. Echocardiogram showed evidence of diastolic dysfunction and evidence of pulmonary hypertension. The patient with slight improvement this morning. The patient reports able to take deep breaths today. He is still requiring O2 supplementation at 4 L. Denies significant cough or sputum production. Reports feeling tired overall. PAST MEDICAL HISTORY: 1. COPD. 2. Coronary artery disease. 3. History of MA. 4. Hypertension. 5. Hypothyroidism. 6. GERD. PAST SURGICAL HISTORY: Stent placement in 2003. MEDICATIONS AT HOME: 1. Synthroid. 2. Aspirin. 3. Imdur. 4. Protonix. 5. Klor-Con. 6. Advair. 7. Zyrtec. 8. Norvasc. 9. Lipitor. 10. Lisinopril. 11. Metoprolol. 12. Vitamin B12. 13. Vitamin D. 14. Tamsulosin. FAMILY HISTORY: Mother of brain tumor. Father of suicide. SOCIAL HISTORY: The patient smoked 30 pack years, quit 30 years ago, drinks 4 to 5 glasses of wine weekly. Denies any drug abuse recently. 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 Also reports exposure to asbestos and had done heavy metal smelting. REVIEW OF SYSTEMS: All 14 systems reviewed, as per HPI. PHYSICAL EXAM: Elderly male, in bed, in no apparent distress. Vital Signs: Temperature 97.8, pulse 76 beats per minute, respiratory rate 17 per minute, O2 sat 100% on 4 L currently, blood pressure 132/58. HEENT: Pupils equal, reactive to light. Mucous membranes moist. Lungs: Diminished air entry at the bases bilaterally, scattered crackles present. Cardiovascular: S1, S2 present. Abdomen: Soft, nontender, nondistended. Bowel sounds present. Extremities: Normal range of motion, trace edema. Skin: No rash or bruise. Neuro: Alert, awake, oriented x3. No focal deficits. DIAGNOSTIC STUDIES/LAB DATA: WBC count 11.2, hemoglobin 11.9, hematocrit 34, platelet count 210. Blood gas analysis showed pH of 7.51, pCO2 of 33, pO2 of 60 , bicarb of 27.6. Sodium 139, potassium 3.2, chloride 105, bicarb 27, BUN 38, creatinine 1.19. Troponins mildly elevated. Influenza A and B negative. Sputum Gram stain 2+ epithelial cells and 3+ gram-negative coccobacilli suggestive of oral reshma. Negative legionella and Strep pneumo antigen. Chest x-ray and CT scan of the chest as described above in HPI. IMPRESSION AND RECOMMENDATIONS: 88-year-old male with a history of chronic obstructive pulmonary disease, non-O2 dependent, admitted with worsening shortness of breath, found to have airspace opacities with some prominence of interstitium, predominantly in the upper lung zones with bilateral pleural effusions. 1. Abnormal chest x-ray/CT chest. Differentials include pneumonia, exacerbation of interstitial lung disease given occupational exposures in the past. The patient does appear to have pneumonia most likely given his symptoms and presentation. Possibility of bronchiolitis obliterans with organizing pneumonia or cryptogenic organizing pneumonia also. The patient does not appear to be in acute exacerbation at this time. Repeat chest x- ray showed slight progression. I do not think there is significant change. It could be more related to fluid situation on top of underlying pneumonia. I would recommend continuing with current antibiotic choice. Would encourage the patient with deep coughing and expectoration of the phlegm. I encouraged the patient to use Flutter device. Titrate FiO2 as tolerated. Awaiting records from his prior organ assembler regarding possibility of underlying interstitial lung disease. 2. Hypoxemic respiratory failure. I think this is more indicative of acute on chronic hypoxemic respiratory failure. The patient does have signs of pulmonary hypertension. He also reports chronic lower extremity edema, which could be indicative of cor pulmonale. The patient requiring higher O2 at this time likely secondary to pneumonia and acute opacities. He also has bilateral pleural effusions. Will continue with diuresis. Titrate FiO2 as tolerated. Will obtain records and review records when available. Thank you for allowing me to participate in the care of your patient. Will follow up with you. [id number]/[facility] #: [id number] [place]
--- NOTE | 2019-05-28 12:55 | PN ---
Subjective Date of Service: 05/28/19 Interval History: Patient today feels about the same. Patient still gets SOB with movement, but is not at rest and has no increased work of breathing. Patient denies F/C, N/V, abdominal pain, diarrhea, constipation, or other pain. Family History: Unchanged from Admission Social History: Unchanged from Admission Past Medical History: Unchanged from Admission Objective Active Medications: Acetaminophen (Tylenol Tab*) 650 mg PO Q6H PRN PRN Reason: MILD PAIN or TEMP > 100.4 Last Admin: 05/27/19 09:46 Dose: 650 mg Albuterol/Ipratropium (Duoneb (Albuterol 2.5 Mg/Ipratropium 0.5 Mg)) 1 neb INH Q4H PRN PRN Reason: SOB/WHEEZING Amlodipine Besylate (Norvasc Tab*) 10 mg PO DAILY [facility] Last Admin: 05/28/19 08:06 Dose: 10 mg Aspirin (Aspirin Ec Tab*) 81 mg PO DAILY [facility] Last Admin: 05/28/19 08:06 Dose: 81 mg Atorvastatin Calcium (Lipitor*) 80 mg PO DAILY [facility] Last Admin: 05/28/19 08:06 Dose: 80 mg Benzonatate (Tessalon Cap*) 100 mg PO BID PRN PRN Reason: COUGH Cholecalciferol (Vitamin D Tab*) 2,000 units PO DAILY [facility] Last Admin: 05/28/19 08:05 Dose: 2,000 units Cyanocobalamin (Vitamin B12 Tab*) 500 mcg PO DAILY [facility] Last Admin: 05/28/19 08:07 Dose: 500 mcg Enoxaparin Sodium (Lovenox(*)) 40 mg SUBCUT DAILY [facility] Last Admin: 05/28/19 08:05 Dose: 40 mg Furosemide (Lasix Iv*) 40 mg IV SLOW PU DAILY [facility] Last Admin: 05/28/19 09:00 Dose: 40 mg Guaifenesin (Mucinex*) 1,200 mg PO BID [facility] Last Admin: 05/28/19 08:07 Dose: 1,200 mg Cefepime HCl (Maxipime 2 Gm In Dextrose Duplex (*)) 2 gm in 50 mls @ 100 mls/ hr IV Q12H [facility] Last Admin: 05/28/19 10:50 Dose: 100 mls/hr Isosorbide Mononitrate (Imdur Er Tab*) 60 mg PO DAILY [facility] Last Admin: 05/28/19 08:07 Dose: 60 mg Levothyroxine Sodium (Synthroid Tab*) 125 mcg PO DAILY@0600 [facility] Last Admin: 05/28/19 05:51 Dose: 125 mcg Lisinopril (Prinivil Tab*) 40 mg PO DAILY [facility] Last Admin: 05/28/19 08:06 Dose: 40 mg Methylprednisolone Sodium Succinate (Solu-Medrol 125mg *) 60 mg IV Q12H [facility] Last Admin: 05/28/19 10:49 Dose: 60 mg Metoprolol Tartrate (Lopressor Tab*) 25 mg PO BID [facility] Last Admin: 05/28/19 08:06 Dose: 25 mg Ondansetron HCl (Zofran Inj*) 4 mg IV Q6H PRN PRN Reason: NAUSEA Pantoprazole Sodium (Protonix Tab*) 40 mg PO DAILY [facility] Last Admin: 05/28/19 08:06 Dose: 40 mg Potassium Chloride (Potassium Chloride Liquid) 40 meq PO DAILY [facility] Last Admin: 05/28/19 09:01 Dose: 40 meq Tamsulosin HCl (Flomax Cap*) 0.4 mg PO DAILY [facility] Last Admin: 05/28/19 08:07 Dose: 0.4 mg Vital Signs - 8 hr 05/28/19 05/28/19 05/28/19 07:15 08:00 11:05 Temperature 97.8 F 97.6 F Pulse Rate 76 57 Respiratory 17 16 16 Rate Blood Pressure 132/58 110/51 (mmHg) O2 Sat by Pulse 100 94 Oximetry Oxygen Devices in Use Now: Nasal Cannula Appearance: Patient is an 88yo male who appears stated age and is sitting in the bed in [facility]. Eyes: No Scleral Icterus, PERRLA Ears/Nose/Mouth/Throat: NL Teeth, Lips, Gums, Clear Oropharnyx, Mucous Membranes Moist Neck: NL Appearance and Movements; NL JVP, Trachea Midline Respiratory: Symmetrical Chest Expansion and Respiratory Effort, - - Slight expiratory wheezing. No other adventitous lung sounds. Cardiovascular: NL Sounds; No Murmurs; No JVD, RRR, No Edema Abdominal: NL Sounds; No Tenderness; No Distention, No Hepatosplenomegaly Lymphatic: No Cervical Adenopathy Extremities: No Edema, No Clubbing, Cyanosis Skin: No Rash or Ulcers, No Nodules or Sclerosis Neurological: Alert and Oriented x 3, NL Sensation, NL Muscle Strength and Tone , - - CN II-XII intact. Result Diagrams: 05/28/19 06:06 05/28/19 06:06 Additional Lab and Data: Lab Results 05/25/19 05/25/19 05/25/19 Range/Units 05:46 06:00 06:00 WBC 9.6 (3.5-10.8) 10^3/uL RBC 3.58 L (4.18-5.48) 10^6 /uL Hgb 11.9 L (14.0-18.0) g/dL Hct 35 L (42-52) % MCV 97 H (80-94) fL MCH 33 H (27-31) pg MCHC 34 (31-36) g/dL RDW 15 (10-15) % Plt Count 222 (150-450) 10^3/uL MPV 6.6 L (7.4-10.4) fL Neut % (Auto) 81.7 % Lymph % (Auto) 6.9 % Glascock % (Auto) 6.9 % Eos % (Auto) 3.8 % Baso % (Auto) 0.7 % Absolute Neuts (auto) 7.9 H (1.5-7.7) 10^3/ul Absolute Lymphs (auto) 0.7 L (1.0-4.8) 10^3/ul Absolute Monos (auto) 0.7 (0-0.8) 10^3/ul Absolute Eos (auto) 0.4 (0-0.6) 10^3/ul Absolute Basos (auto) 0.1 (0-0.2) 10^3/ul Absolute Nucleated RBC 0.0 10^3/ul Nucleated RBC % 0.0 INR (Anticoag Therapy) (0.82-1.09) APTT (26.0-38.0) seconds Sodium 140 (135-145) mmol/L Potassium 3.9 (3.5-5.0) mmol/L Chloride 110 (101-111) mmol/L Carbon Dioxide 22 (22-32) mmol/L Anion Gap 8 (2-11) mmol/L BUN 23 (6-24) mg/dL Creatinine 1.18 H (0.67-1.17) mg/dL Est GFR ( Amer) 70.8 (>60) Est GFR (Non-Af Amer) 58.5 (>60) BUN/Creatinine Ratio 19.5 (8-20) Glucose 114 H (70-100) mg/dL Lactic Acid (0.5-2.0) mmol/L Calcium 8.8 (8.6-10.3) mg/dL Total Bilirubin 0.60 (0.2-1.0) mg/dL AST 21 (13-39) U/L ALT 14 (7-52) U/L Alkaline Phosphatase 60 (34-104) U/L Troponin I 0.01 (<0.03) ng/mL B-Natriuretic Peptide (<=100) pg/mL Total Protein 6.9 (6.4-8.9) g/dL Albumin 3.9 (3.2-5.2) g/dL Globulin 3.0 (2-4) g/dL Albumin/Globulin Ratio 1.3 (1-3) Influenza A (Rapid) Negative (Negative) Influenza B (Rapid) Negative (Negative) 05/25/19 05/25/19 05/25/19 Range/Units 06:00 06:00 06:00 WBC (3.5-10.8) 10^3/uL RBC (4.18-5.48) 10^6 /uL Hgb (14.0-18.0) g/dL Hct (42-52) % MCV (80-94) fL MCH (27-31) pg MCHC (31-36) g/dL RDW (10-15) % Plt Count (150-450) 10^3/uL MPV (7.4-10.4) fL Neut % (Auto) % Lymph % (Auto) % Glascock % (Auto) % Eos % (Auto) % Baso % (Auto) % Absolute Neuts (auto) (1.5-7.7) 10^3/ul Absolute Lymphs (auto) (1.0-4.8) 10^3/ul Absolute Monos (auto) (0-0.8) 10^3/ul Absolute Eos (auto) (0-0.6) 10^3/ul Absolute Basos (auto) (0-0.2) 10^3/ul Absolute Nucleated RBC 10^3/ul Nucleated RBC % INR (Anticoag Therapy) 1.09 (0.82-1.09) APTT 33.1 (26.0-38.0) seconds Sodium (135-145) mmol/L Potassium (3.5-5.0) mmol/L Chloride (101-111) mmol/L Carbon Dioxide (22-32) mmol/L Anion Gap (2-11) mmol/L BUN (6-24) mg/dL Creatinine (0.67-1.17) mg/dL Est GFR ( Amer) (>60) Est GFR (Non-Af Amer) (>60) BUN/Creatinine Ratio (8-20) Glucose (70-100) mg/dL Lactic Acid 0.6 (0.5-2.0) mmol/L Calcium (8.6-10.3) mg/dL Total Bilirubin (0.2-1.0) mg/dL AST (13-39) U/L ALT (7-52) U/L Alkaline Phosphatase (34-104) U/L Troponin I (<0.03) ng/mL B-Natriuretic Peptide 290 H (<=100) pg/mL Total Protein (6.4-8.9) g/dL Albumin (3.2-5.2) g/dL Globulin (2-4) g/dL Albumin/Globulin Ratio (1-3) Influenza A (Rapid) (Negative) Influenza B (Rapid) (Negative) Microbiology and Other Data: Microbiology 05/26/19 05:47 Gram Stain - Final Sputum 05/25/19 17:15 Legionella Urinary Antigen - Final Urine Negative Legionella Antigen Streptococcus pneumoniae Ag Screen - Final Negative S. pneumo Antigen Assess/Plan/Problems-Billing Assessment: Mr. Thorne is an 88 y.o male with pmhx significant for htn, [place] 2004 and copd who presented to the ER with shortness of breath and leg swelling. - Patient Problems (1) Respiratory failure with hypoxia Current Visit: Yes Status: Acute Code(s): J96.91 - RESPIRATORY FAILURE, UNSPECIFIED WITH HYPOXIA SNOMED Code(s): 29423609431331463 Comment: - Likely a combination of RUL pneumonia and exacerbation of COPD, with possible underlying CHF - Decrease Diuretics. - Minimal improvement and severe hypoxia, Broaden antibiotics. - Blood culture negative - Urine Negative for strep and legionella - Sputum Grew normal Evelyne - Continue breathing treatments and supplemental oxygen as needed - Appreciate pulmonology input, CT and Echo findings consistent with chronic hypoxia. Unable to determine chronicity of interstitial changes. - Continue to attempt to get records. (2) COPD (chronic obstructive pulmonary disease) Current Visit: Yes Status: Acute Code(s): J44.9 - CHRONIC OBSTRUCTIVE PULMONARY DISEASE, UNSPECIFIED SNOMED Code(s): 47731584 Comment: - Will continue nebs - Continue prednisone - Improved Wheezing today (3) Fluid overload Current Visit: Yes Status: Acute Code(s): E87.70 - FLUID OVERLOAD, UNSPECIFIED SNOMED Code(s): 43913556 Comment: - With pleural effusions on CT - On lasix IV daily - Echo for pEF and diastilic dysfunction. (4) HTN (hypertension) Current Visit: Yes Status: Acute Code(s): I10 - ESSENTIAL (PRIMARY) HYPERTENSION SNOMED Code(s): 87582444 Comment: - Continue imdur, lisinopril and metoprolol (5) Hypothyroid Current Visit: Yes Status: Acute Code(s): E03.9 - HYPOTHYROIDISM, UNSPECIFIED SNOMED Code(s): 42994310 Comment: - Continue levothyroxine (6) DVT prophylaxis Current Visit: Yes Status: Acute Code(s): Z29.9 - ENCOUNTER FOR PROPHYLACTIC MEASURES, UNSPECIFIED SNOMED Code(s): 165643882 Comment: - Lovenox SubQ (7) Full code status Current Visit: Yes Status: Acute Code(s): Z78.9 - OTHER SPECIFIED HEALTH STATUS SNOMED Code(s): 257291710 Status and Disposition: Discharge Home When Medically Stable.
[2019-05-29] MEDS: Levothyroxine TAB* 125 MCG TAB PO SCH (05:14)
[2019-05-29 06:42] LABS: ABS Lymphocytes 0.4 10^3/ul (1.0-4.8); ABS Monocytes 0.3 10^3/ul (0-0.8); ABS Neutrophils 6.3 10^3/ul (1.5-7.7); Hematocrit 35 % (42-52); Mean Corpuscular HGB Conc 34 g/dL (31-36); Mean Corpuscular Hemoglobin 33 pg (27-31); Mean Corpuscular Volume 96 fL (80-94); Mean Platelet Volume 7.1 fL (7.4-10.4); Platelet Count 235 10^3/uL (150-450); Red Blood Count 3.61 10^6 /uL (4.18-5.48); Red Cell Distribution Width 14 % (10-15)
[2019-05-29 06:55] LABS: BUN/Creatinine Ratio 38.4 (8-20); Calcium 8.6 mg/dL (8.6-10.3); EGFR African American 75.2 (>60); EGFR Non-African American 62.2 (>60); Potassium 3.6 mmol/L (3.5-5.0)
[2019-05-29] MEDS: Potassium Chloride* LIQUID 20 MEQ/15 ML UDC PO SCH (09:18)
[2019-05-29] MEDS: Tamsulosin CAP* 0.4 MG PO SCH (09:18)
[2019-05-29] MEDS: Furosemide IV* 10 MG/ML VIAL (40 MG) IV SLOW PU SCH (09:18)
[2019-05-29] MEDS: amLODIPine TAB* 5 MG PO SCH (09:18)
[2019-05-29] MEDS: Cholecalciferol TAB* 1000 UNITS PO SCH (09:18)
[2019-05-29] MEDS: Lisinopril TAB* 10 MG PO SCH (09:18)
[2019-05-29] MEDS: Aspirin EC TAB* 81 MG TAB.EC PO SCH (09:18)
[2019-05-29] MEDS: Atorvastatin* 80 MG TAB PO SCH (09:19)
[2019-05-29] MEDS: Pantoprazole TAB * 40 MG TAB PO SCH (09:19)
[2019-05-29] MEDS: Isosorbide Mononitrate ER TAB* 60 MG PO SCH (09:19)
[2019-05-29] MEDS: Cyanocobalamin TAB* 500 MCG PO SCH (09:19)
[2019-05-29] MEDS: guaiFENesin ER TAB 600 MG PO SCH ×2 (09:19→21:20)
[2019-05-29] MEDS: Metoprolol Tartrate TAB* 25 MG PO SCH ×2 (09:19→21:20)
[2019-05-29] MEDS: Enoxaparin(*) 40 MG/0.4 ML SYR SUBCUT SCH (09:19)
--- NOTE | 2019-05-29 09:55 | PN ---
Progress Note - Progress Note Date of Service: 05/29/19 - Pulm f/u note Note: Pt seen and examined at bedside. Pt reports feeling slightly better, reports congestion and inability to expectorate secretions Active Medications Generic Name Dose Route Start Last Admin Trade Name Freq PRN Reason Stop Dose Admin Acetaminophen 650 mg 05/25/19 09:43 05/27/19 09:46 Tylenol Tab* PO 650 mg Q6H PRN Administration MILD PAIN or TEMP > 100.4 Albuterol/Ipratropium 1 neb 05/25/19 20:22 Duoneb (Albuterol 2.5 Mg/Ipratropium 0.5 Mg) INH Q4H PRN SOB/WHEEZING Amlodipine Besylate 10 mg 05/26/19 09:00 05/29/19 09:18 Norvasc Tab* PO 10 mg DAILY ASHLEY Administration Aspirin 81 mg 05/26/19 09:00 05/29/19 09:18 Aspirin Ec Tab* PO 81 mg DAILY ASHLEY Administration Atorvastatin Calcium 80 mg 05/26/19 09:00 05/29/19 09:19 Lipitor* PO 80 mg DAILY ASHLEY Administration Benzonatate 100 mg 05/25/19 09:43 Tessalon Cap* PO BID PRN COUGH Cholecalciferol 2,000 units 05/26/19 09:00 05/29/19 09:18 Vitamin D Tab* PO 2,000 units DAILY ASHLEY Administration Cyanocobalamin 500 mcg 05/26/19 09:00 05/29/19 09:19 Vitamin B12 Tab* PO 500 mcg DAILY ASHLEY Administration Enoxaparin Sodium 40 mg 05/25/19 10:00 05/29/19 09:19 Lovenox(*) SUBCUT 40 mg DAILY ASHLEY Administration Furosemide 20 mg 05/29/19 09:00 05/29/19 09:18 Lasix Iv* IV SLOW PU 20 mg DAILY ASHLEY Administration Guaifenesin 1,200 mg 05/25/19 21:00 05/29/19 09:19 Mucinex* PO 1,200 mg BID ASHLEY Administration Cefepime HCl 2 gm in 50 mls @ 100 mls/hr 05/28/19 11:00 05/28/19 23:33 Maxipime 2 Gm In Dextrose Duplex (*) IV 100 mls/hr Q12H ASHLEY Administration Isosorbide Mononitrate 60 mg 05/26/19 09:00 05/29/19 09:19 Imdur Er Tab* PO 60 mg DAILY ASHLEY Administration Levothyroxine Sodium 125 mcg 05/26/19 06:00 05/29/19 05:14 Synthroid Tab* PO 125 mcg DAILY@0600 ASHLEY Administration Lisinopril 40 mg 05/26/19 09:00 05/29/19 09:18 Prinivil Tab* PO 40 mg DAILY ASHLEY Administration Methylprednisolone Sodium Succinate 60 mg 05/28/19 11:00 05/28/19 21:50 Solu-Medrol 125mg * IV 60 mg Q12H ASHLEY Administration Metoprolol Tartrate 25 mg 05/25/19 21:00 05/29/19 09:19 Lopressor Tab* PO 25 mg BID ASHLEY Administration Ondansetron HCl 4 mg 05/25/19 09:43 Zofran Inj* IV Q6H PRN NAUSEA Pantoprazole Sodium 40 mg 05/26/19 09:00 05/29/19 09:19 Protonix Tab* PO 40 mg DAILY ASHLEY Administration Potassium Chloride 40 meq 05/28/19 09:00 05/29/19 09:18 Potassium Chloride Liquid PO 40 meq DAILY ASHLEY Administration Tamsulosin HCl 0.4 mg 05/27/19 09:00 05/29/19 09:18 Flomax Cap* PO 0.4 mg DAILY ASHLEY Administration Vital Signs Temp Pulse Resp BP Pulse Ox 97.8 F 70 14 133/60 92 05/29/19 07:15 05/29/19 07:15 05/29/19 08:00 05/29/19 07:15 05/29/19 07:15 O/E: Pt in NAD HEENT: PERRLA Lungs: Dimnished air entry, improved crackles CVS: S1, S2+ Abd: Soft, BS+ Ext: Normal ROM Skin: no rash Neuro: NO focal deficits Laboratory Results - last 24 hr 05/28/19 05/29/19 05/29/19 10:31 06:18 06:18 WBC 7.0 RBC 3.61 L Hgb 12.0 L Hct 35 L MCV 96 H MCH 33 H MCHC 34 RDW 14 Plt Count 235 MPV 7.1 L Neut % (Auto) 90.2 Lymph % (Auto) 6.0 [place] % (Auto) 3.7 Eos % (Auto) 0.0 Baso % (Auto) 0.1 Absolute Neuts (auto) 6.3 Absolute Lymphs (auto) 0.4 L Absolute Monos (auto) 0.3 Absolute Eos (auto) 0.0 Absolute Basos (auto) 0.0 Absolute Nucleated RBC 0.0 Nucleated RBC % 0.0 Patient Temperature Not Reportable ABG pH 7.47 H ABG pH (Temp Correct) Not Reportable ABG pCO2 36 ABG pCO2 (Temp Corrct Not Reportable ABG pO2 70 L ABG pO2 (Temp Correct Not Reportable ABG HCO3 27.0 ABG O2 Saturation 96.8 ABG Base Excess 2.7 H Respiration Rate Not Reportable O2 Delivery Device nasal cannula 6lpm Ventilator Type Not Reportable Vent Mode Not Reportable FiO2 Not Reportable Inspiratory Time Not Reportable PEEP Not Reportable Pressure Support Not Reportable Pressure Control Not Reportable EPAP Not Reportable IPAP Not Reportable BiPAP Not Reportable Sodium 137 Potassium 3.6 Chloride 105 Carbon Dioxide 24 Anion Gap 8 BUN 43 H Creatinine 1.12 Est GFR ( Amer) 75.2 Est GFR (Non-Af Amer) 62.2 BUN/Creatinine Ratio 38.4 H Glucose 136 H Calcium 8.6 Magnesium 2.0 I/R: 88 y o m former smoker with h/o occupational exposures including possible asbestos a/w worsening SOB, fatigue. Pt found to be having hypoxic resp failure and air space opacities b/l, predominantly in upper lung zones and b/l pl effusions Differentials include PNA superimposed on underlying emphysematous lung giving appearance of crazy paving versus exacerbation of ILD versus [employer] versus acute CHF Hypoxic reps failure likely acute on chronic Slight improvement in FiO2 requirements Titrate FiO2 to keep O2 sat around 92% c/w Lasix c/w abx c/w flutter device, mucinex c/w nebs
[2019-05-29] MEDS ORDERED: cefTRIAXone VIAL(*) 500 MG in NS 0.9% 50 ML* 50 ML IVPB SCH (11:00)
[2019-05-29] MEDS: cefTRIAXone(*) 1 GM in NS 0.9% 50 ML* 50 ML IVPB SCH (11:59)
[2019-05-29] MEDS: Azithromycin IV(*) 250 MG in NS 0.9% 250 ML* 250 ML IVPB SCH (12:28)
--- NOTE | 2019-05-29 14:48 | PN ---
Subjective Date of Service: 05/29/19 Interval History: Patient is feeling better today. Patient states his shortness of breath is better. Patient denies CP, SOB, cough F/C, N/V, abdominal pain, diarrhea, or other pain. Patient is concerned about the amount of driving it will take for him to get home as his daughter will have to drive him. Family History: Unchanged from Admission Social History: Unchanged from Admission Past Medical History: Unchanged from Admission Objective Active Medications: Acetaminophen (Tylenol Tab*) 650 mg PO Q6H PRN PRN Reason: MILD PAIN or TEMP > 100.4 Last Admin: 05/27/19 09:46 Dose: 650 mg Albuterol/Ipratropium (Duoneb (Albuterol 2.5 Mg/Ipratropium 0.5 Mg)) 1 neb INH Q4H PRN PRN Reason: SOB/WHEEZING Amlodipine Besylate (Norvasc Tab*) 10 mg PO DAILY [facility] [place] Last Admin: 05/29/19 09:18 Dose: 10 mg Aspirin (Aspirin Ec Tab*) 81 mg PO DAILY [facility] [place] Last Admin: 05/29/19 09:18 Dose: 81 mg Atorvastatin Calcium (Lipitor*) 80 mg PO DAILY [facility] [place] Last Admin: 05/29/19 09:19 Dose: 80 mg Benzonatate (Tessalon Cap*) 100 mg PO BID PRN PRN Reason: COUGH Cholecalciferol (Vitamin D Tab*) 2,000 units PO DAILY [facility] [place] Last Admin: 05/29/19 09:18 Dose: 2,000 units Cyanocobalamin (Vitamin B12 Tab*) 500 mcg PO DAILY [facility] [place] Last Admin: 05/29/19 09:19 Dose: 500 mcg Enoxaparin Sodium (Lovenox(*)) 40 mg SUBCUT DAILY [facility] [place] Last Admin: 05/29/19 09:19 Dose: 40 mg Furosemide (Lasix Iv*) 20 mg IV SLOW PU DAILY [facility] [place] Last Admin: 05/29/19 09:18 Dose: 20 mg Guaifenesin (Mucinex*) 1,200 mg PO BID [facility] [place] Last Admin: 05/29/19 09:19 Dose: 1,200 mg Azithromycin 250 mg/ Sodium (Chloride) 250 mls @ 250 mls/hr IVPB Q24H [facility] [place] Last Admin: 05/29/19 12:28 Dose: 250 mls/hr Ceftriaxone Sodium 1 gm/ (Sodium Chloride) 50 mls @ 200 mls/hr IVPB Q24H [facility] [place] Last Admin: 05/29/19 11:59 Dose: 200 mls/hr Isosorbide Mononitrate (Imdur Er Tab*) 60 mg PO DAILY [facility] [place] Last Admin: 05/29/19 09:19 Dose: 60 mg Levothyroxine Sodium (Synthroid Tab*) 125 mcg PO DAILY@0600 [facility] [place] Last Admin: 05/29/19 05:14 Dose: 125 mcg Lisinopril (Prinivil Tab*) 40 mg PO DAILY [facility] [place] Last Admin: 05/29/19 09:18 Dose: 40 mg Metoprolol Tartrate (Lopressor Tab*) 25 mg PO BID [facility] [place] Last Admin: 05/29/19 09:19 Dose: 25 mg Ondansetron HCl (Zofran Inj*) 4 mg IV Q6H PRN PRN Reason: NAUSEA Pantoprazole Sodium (Protonix Tab*) 40 mg PO DAILY [facility] [place] Last Admin: 05/29/19 09:19 Dose: 40 mg Potassium Chloride (Potassium Chloride Liquid) 40 meq PO DAILY [facility] [place] Last Admin: 05/29/19 09:18 Dose: 40 meq Prednisone (Deltasone 50 Mg Tab) 50 mg PO DAILY [facility] [place] Last Admin: 05/29/19 11:59 Dose: 50 mg Tamsulosin HCl (Flomax Cap*) 0.4 mg PO DAILY [facility] [place] Last Admin: 05/29/19 09:18 Dose: 0.4 mg Vital Signs - 8 hr 05/29/19 05/29/19 05/29/19 07:15 08:00 11:50 Temperature 97.8 F 97.9 F Pulse Rate 70 66 Respiratory 14 14 14 Rate Blood Pressure 133/60 109/58 (mmHg) O2 Sat by Pulse 92 96 Oximetry Oxygen Devices in Use Now: Nasal Cannula Appearance: Patient is an 88yo male who appears stated age and is sitting in the bed in [facility]. Eyes: No Scleral Icterus, PERRLA Ears/Nose/Mouth/Throat: NL Teeth, Lips, Gums, Clear Oropharnyx, Mucous Membranes Moist Neck: NL Appearance and Movements; NL JVP, Trachea Midline Respiratory: Symmetrical Chest Expansion and Respiratory Effort, - - Slight expiratory wheezing. No other adventitious lung sounds Cardiovascular: NL Sounds; No Murmurs; No JVD, RRR, - - Trace B/L LE edema. Abdominal: NL Sounds; No Tenderness; No Distention, No Hepatosplenomegaly Lymphatic: No Cervical Adenopathy Extremities: No Clubbing, Cyanosis Skin: No Rash or Ulcers, No Nodules or Sclerosis Neurological: Alert and Oriented x 3, NL Sensation, NL Muscle Strength and Tone , - - CN II-XII intact. Result Diagrams: 05/29/19 06:18 05/29/19 06:18 Additional Lab and Data: Lab Results 05/25/19 05/25/19 05/25/19 Range/Units 05:46 06:00 06:00 WBC 9.6 (3.5-10.8) 10^3/uL RBC 3.58 L (4.18-5.48) 10^6 /uL Hgb 11.9 L (14.0-18.0) g/dL Hct 35 L (42-52) % MCV 97 H (80-94) fL MCH 33 H (27-31) pg MCHC 34 (31-36) g/dL RDW 15 (10-15) % Plt Count 222 (150-450) 10^3/uL MPV 6.6 L (7.4-10.4) fL Neut % (Auto) 81.7 % Lymph % (Auto) 6.9 % [place] % (Auto) 6.9 % Eos % (Auto) 3.8 % Baso % (Auto) 0.7 % Absolute Neuts (auto) 7.9 H (1.5-7.7) 10^3/ul Absolute Lymphs (auto) 0.7 L (1.0-4.8) 10^3/ul Absolute Monos (auto) 0.7 (0-0.8) 10^3/ul Absolute Eos (auto) 0.4 (0-0.6) 10^3/ul Absolute Basos (auto) 0.1 (0-0.2) 10^3/ul Absolute Nucleated RBC 0.0 10^3/ul Nucleated RBC % 0.0 INR (Anticoag Therapy) (0.82-1.09) APTT (26.0-38.0) seconds Sodium 140 (135-145) mmol/L Potassium 3.9 (3.5-5.0) mmol/L Chloride 110 (101-111) mmol/L Carbon Dioxide 22 (22-32) mmol/L Anion Gap 8 (2-11) mmol/L BUN 23 (6-24) mg/dL Creatinine 1.18 H (0.67-1.17) mg/dL Est GFR ( Amer) 70.8 (>60) Est GFR (Non-Af Amer) 58.5 (>60) BUN/Creatinine Ratio 19.5 (8-20) Glucose 114 H (70-100) mg/dL Lactic Acid (0.5-2.0) mmol/L Calcium 8.8 (8.6-10.3) mg/dL Total Bilirubin 0.60 (0.2-1.0) mg/dL AST 21 (13-39) U/L ALT 14 (7-52) U/L Alkaline Phosphatase 60 (34-104) U/L Troponin I 0.01 (<0.03) ng/mL B-Natriuretic Peptide (<=100) pg/mL Total Protein 6.9 (6.4-8.9) g/dL Albumin 3.9 (3.2-5.2) g/dL Globulin 3.0 (2-4) g/dL Albumin/Globulin Ratio 1.3 (1-3) Influenza A (Rapid) Negative (Negative) Influenza B (Rapid) Negative (Negative) 05/25/19 05/25/19 05/25/19 Range/Units 06:00 06:00 06:00 WBC (3.5-10.8) 10^3/uL RBC (4.18-5.48) 10^6 /uL Hgb (14.0-18.0) g/dL Hct (42-52) % MCV (80-94) fL MCH (27-31) pg MCHC (31-36) g/dL RDW (10-15) % Plt Count (150-450) 10^3/uL MPV (7.4-10.4) fL Neut % (Auto) % Lymph % (Auto) % [place] % (Auto) % Eos % (Auto) % Baso % (Auto) % Absolute Neuts (auto) (1.5-7.7) 10^3/ul Absolute Lymphs (auto) (1.0-4.8) 10^3/ul Absolute Monos (auto) (0-0.8) 10^3/ul Absolute Eos (auto) (0-0.6) 10^3/ul Absolute Basos (auto) (0-0.2) 10^3/ul Absolute Nucleated RBC 10^3/ul Nucleated RBC % INR (Anticoag Therapy) 1.09 (0.82-1.09) APTT 33.1 (26.0-38.0) seconds Sodium (135-145) mmol/L Potassium (3.5-5.0) mmol/L Chloride (101-111) mmol/L Carbon Dioxide (22-32) mmol/L Anion Gap (2-11) mmol/L BUN (6-24) mg/dL Creatinine (0.67-1.17) mg/dL Est GFR ( Amer) (>60) Est GFR (Non-Af Amer) (>60) BUN/Creatinine Ratio (8-20) Glucose (70-100) mg/dL Lactic Acid 0.6 (0.5-2.0) mmol/L Calcium (8.6-10.3) mg/dL Total Bilirubin (0.2-1.0) mg/dL AST (13-39) U/L ALT (7-52) U/L Alkaline Phosphatase (34-104) U/L Troponin I (<0.03) ng/mL B-Natriuretic Peptide 290 H (<=100) pg/mL Total Protein (6.4-8.9) g/dL Albumin (3.2-5.2) g/dL Globulin (2-4) g/dL Albumin/Globulin Ratio (1-3) Influenza A (Rapid) (Negative) Influenza B (Rapid) (Negative) Microbiology and Other Data: Microbiology 05/26/19 05:47 Gram Stain - Final Sputum 05/25/19 17:15 Legionella Urinary Antigen - Final Urine Negative Legionella Antigen Streptococcus pneumoniae Ag Screen - Final Negative S. pneumo Antigen Assess/Plan/Problems-Billing Assessment: Mr. Thorne is an 88 y.o male with pmhx significant for htn, [place] 2004 and copd who presented to the ER with shortness of breath and leg swelling. - Patient Problems (1) Respiratory failure with hypoxia Current Visit: Yes Status: Acute Code(s): J96.91 - RESPIRATORY FAILURE, UNSPECIFIED WITH HYPOXIA SNOMED Code(s): 94893287573227573 Comment: - Likely a combination of RUL pneumonia and exacerbation of COPD, with possible underlying CHF - Decrease Diuretics to 20mg IV daily - Great improvement today, scale back treatments (PO steroids, Ceftriaxone, Azithromycin) - Blood culture negative - Urine Negative for strep and legionella - Sputum Grew normal [place] - Continue breathing treatments and supplemental oxygen as needed - Appreciate pulmonology input, CT and Echo findings consistent with chronic hypoxia. Unable to determine chronicity of interstitial changes. - Continue to attempt to get records. - Goal for D/C on O2 2-3L - Follow up outpatient [employer] for ongoing [place] [facility] and treatment. (2) COPD (chronic obstructive pulmonary disease) Current Visit: Yes Status: Acute Code(s): J44.9 - CHRONIC OBSTRUCTIVE PULMONARY DISEASE, UNSPECIFIED SNOMED Code(s): 42738019 Comment: - Will continue nebs - Continue prednisone - Stable wheezing today. (3) Fluid overload Current Visit: Yes Status: Acute Code(s): E87.70 - FLUID OVERLOAD, UNSPECIFIED SNOMED Code(s): 23350530 Comment: - With pleural effusions on CT - On lasix IV daily at 20mg daily. - Echo for pEF and diastilic dysfunction. (4) HTN (hypertension) Current Visit: Yes Status: Acute Code(s): I10 - ESSENTIAL (PRIMARY) HYPERTENSION SNOMED Code(s): 31909645 Comment: - Continue imdur, lisinopril and metoprolol (5) Hypothyroid Current Visit: Yes Status: Acute Code(s): E03.9 - HYPOTHYROIDISM, UNSPECIFIED SNOMED Code(s): 15905153 Comment: - Continue levothyroxine (6) DVT prophylaxis Current Visit: Yes Status: Acute Code(s): Z29.9 - ENCOUNTER FOR PROPHYLACTIC MEASURES, UNSPECIFIED SNOMED Code(s): 812702136 Comment: - Lovenox SubQ (7) Full code status Current Visit: Yes Status: Acute Code(s): Z78.9 - OTHER SPECIFIED HEALTH STATUS SNOMED Code(s): 696475459 Status and Disposition: Discharge Home When Medically Stable. Hopefully in next 1-2 days,
[2019-05-30] MEDS ORDERED: Nitroglycerin TAB 0.3 MG* 0.3 MG TAB SL PRN (04:13)
--- NOTE | 2019-05-30 04:22 | PN ---
Resident Interval ProgressNote Date of Service: 05/30/19 Called to see patient for chest pain, History of heart attack with stents placed Symptoms during heart attack: generalized discomfort, no specific chest pain Patient pointed pain around costosternal area of 4th rib, he described as sharp pain, no radiation, no palpitation, no chest pain associated. Pain was reproduced by pressing. He was awake and resting when this pain happens. Patient stated he had similar kind of chest pain a few days ago, and nitroglycerin resolved it. Vital signs stable EKG: sinus rhythm, PAC noted, no ST-T changes seen from last EKG. A: Atypical chest pain P: In view of his background of CAD and risk factors, ACS needs to be ruled out trend trop nitroglycerin sl I will reassess her chest pain after nitro
[2019-05-30] MEDS ORDERED: Nitroglycerin TAB 0.4 MG* 0.4 MG TAB SL PRN (04:23)
[2019-05-30 05:28] LABS: Calcium 8.5 mg/dL (8.6-10.3); EGFR African American 74.5 (>60); EGFR Non-African American 61.5 (>60)
[2019-05-30] MEDS: Levothyroxine TAB* 125 MCG TAB PO SCH (05:55)
[2019-05-30] MEDS: Potassium Chloride* LIQUID 20 MEQ/15 ML UDC PO SCH (09:29)
[2019-05-30] MEDS: Furosemide IV* 10 MG/ML VIAL (40 MG) IV SLOW PU SCH (09:30)
[2019-05-30] MEDS: Cholecalciferol TAB* 1000 UNITS PO SCH (09:30)
[2019-05-30] MEDS: Isosorbide Mononitrate ER TAB* 60 MG PO SCH (09:30)
[2019-05-30] MEDS: Lisinopril TAB* 10 MG PO SCH (09:30)
[2019-05-30] MEDS: Enoxaparin(*) 40 MG/0.4 ML SYR SUBCUT SCH (09:30)
[2019-05-30] MEDS: amLODIPine TAB* 5 MG PO SCH (09:31)
[2019-05-30] MEDS: Metoprolol Tartrate TAB* 25 MG PO SCH ×2 (09:31→21:08)
[2019-05-30] MEDS: guaiFENesin ER TAB 600 MG PO SCH ×2 (09:31→21:08)
[2019-05-30] MEDS: Tamsulosin CAP* 0.4 MG PO SCH (09:31)
[2019-05-30] MEDS: Pantoprazole TAB * 40 MG TAB PO SCH (09:31)
[2019-05-30] MEDS: Aspirin EC TAB* 81 MG TAB.EC PO SCH (09:31)
[2019-05-30] MEDS: Atorvastatin* 80 MG TAB PO SCH (09:31)
[2019-05-30] MEDS: Cyanocobalamin TAB* 500 MCG PO SCH (09:31)
--- NOTE | 2019-05-30 11:36 | PN ---
Subjective Date of Service: 05/30/19 Interval History: Mr. Thorne states he is feeling much better today. He had an episode of chest pain overnight that was relieved with nitro. He states that he believes this occurred because he was "overdoing it," stating he had little sleep and was performing deep breathing exercises and thinks he rolled over too quickly. The pain was the the L of the mid-sternal area. He has had no pain since nitro. He reports that he does occasionally get chest pain, but notes that it is relieved with nitro. Last stress test was "a couple months ago" at [facility]. Mr. Thorne denies cough, wheeze, fever, chills. He c/o some SOB and is currently on 3L supplemental O2. He has no other complaints today. Family History: Unchanged from Admission Social History: Unchanged from Admission Past Medical History: Unchanged from Admission Objective Active Medications: Acetaminophen (Tylenol Tab*) 650 mg PO Q6H PRN PRN Reason: MILD PAIN or TEMP > 100.4 Last Admin: 05/27/19 09:46 Dose: 650 mg Albuterol/Ipratropium (Duoneb (Albuterol 2.5 Mg/Ipratropium 0.5 Mg)) 1 neb INH Q4H PRN PRN Reason: SOB/WHEEZING Amlodipine Besylate (Norvasc Tab*) 10 mg PO DAILY [facility] Last Admin: 05/30/19 09:31 Dose: 10 mg Aspirin (Aspirin Ec Tab*) 81 mg PO DAILY [facility] Last Admin: 05/30/19 09:31 Dose: 81 mg Atorvastatin Calcium (Lipitor*) 80 mg PO DAILY [facility] Last Admin: 05/30/19 09:31 Dose: 80 mg Benzonatate (Tessalon Cap*) 100 mg PO BID PRN PRN Reason: COUGH Cholecalciferol (Vitamin D Tab*) 2,000 units PO DAILY [facility] Last Admin: 05/30/19 09:30 Dose: 2,000 units Cyanocobalamin (Vitamin B12 Tab*) 500 mcg PO DAILY [facility] Last Admin: 05/30/19 09:31 Dose: 500 mcg Enoxaparin Sodium (Lovenox(*)) 40 mg SUBCUT DAILY [facility] Last Admin: 05/30/19 09:30 Dose: 40 mg Furosemide (Lasix Iv*) 20 mg IV SLOW PU DAILY [facility] Last Admin: 05/30/19 09:30 Dose: 20 mg Guaifenesin (Mucinex*) 1,200 mg PO BID [facility] Last Admin: 05/30/19 09:31 Dose: 1,200 mg Azithromycin 250 mg/ Sodium (Chloride) 250 mls @ 250 mls/hr IVPB Q24H [facility] Last Admin: 05/29/19 12:28 Dose: 250 mls/hr Ceftriaxone Sodium 1 gm/ (Sodium Chloride) 50 mls @ 200 mls/hr IVPB Q24H [facility] Last Admin: 05/29/19 11:59 Dose: 200 mls/hr Isosorbide Mononitrate (Imdur Er Tab*) 60 mg PO DAILY [facility] Last Admin: 05/30/19 09:30 Dose: 60 mg Levothyroxine Sodium (Synthroid Tab*) 125 mcg PO DAILY@0600 [facility] Last Admin: 05/30/19 05:55 Dose: 125 mcg Lisinopril (Prinivil Tab*) 40 mg PO DAILY [facility] Last Admin: 05/30/19 09:30 Dose: 40 mg Metoprolol Tartrate (Lopressor Tab*) 25 mg PO BID [facility] Last Admin: 05/30/19 09:31 Dose: 25 mg Nitroglycerin (Nitroglycerin Tab 0.4 Mg*) 0.4 mg SL Q5M PRN PRN Reason: ANGINA Last Admin: 05/30/19 04:25 Dose: 0.4 mg Ondansetron HCl (Zofran Inj*) 4 mg IV Q6H PRN PRN Reason: NAUSEA Pantoprazole Sodium (Protonix Tab*) 40 mg PO DAILY [facility] Last Admin: 05/30/19 09:31 Dose: 40 mg Potassium Chloride (Potassium Chloride Liquid) 40 meq PO DAILY [facility] Last Admin: 05/30/19 09:29 Dose: 40 meq Prednisone (Deltasone 50 Mg Tab) 50 mg PO DAILY [facility] Last Admin: 05/30/19 09:31 Dose: 50 mg Tamsulosin HCl (Flomax Cap*) 0.4 mg PO DAILY [facility] Last Admin: 05/30/19 09:31 Dose: 0.4 mg Vital Signs: Temp Pulse Resp BP Pulse Ox 97.6 F 62 24 139/72 98 05/30/19 07:15 05/30/19 07:15 05/30/19 08:00 05/30/19 07:15 05/30/19 07:15 Oxygen Devices in Use Now: Nasal Cannula Appearance: Mr. Thorne is an elderly white male who is sitting in recliner with LE at floor. He is breathing comfortably on supplemental O2 and appears to be in no acute distress. Eyes: No Scleral Icterus, PERRLA Ears/Nose/Mouth/Throat: NL Teeth, Lips, Gums, Clear Oropharnyx, Mucous Membranes Moist Neck: NL Appearance and Movements; NL JVP, Trachea Midline Respiratory: Symmetrical Chest Expansion and Respiratory Effort, Clear to Auscultation Cardiovascular: NL Sounds; No Murmurs; No JVD, RRR, - - b/l LE 1+ pitting edema Abdominal: NL Sounds; No Tenderness; No Distention, No Hepatosplenomegaly Extremities: No Clubbing, Cyanosis, - - b/l LE 1+ pitting edema Neurological: Alert and Oriented x 3, NL Muscle Strength and Tone, - - CN II- XII grossly intact Result Diagrams: 05/29/19 06:18 05/30/19 04:55 Additional Lab and Data: Lab Results 05/25/19 05/25/19 05/25/19 Range/Units 05:46 06:00 06:00 WBC 9.6 (3.5-10.8) 10^3/uL RBC 3.58 L (4.18-5.48) 10^6 /uL Hgb 11.9 L (14.0-18.0) g/dL Hct 35 L (42-52) % MCV 97 H (80-94) fL MCH 33 H (27-31) pg MCHC 34 (31-36) g/dL RDW 15 (10-15) % Plt Count 222 (150-450) 10^3/uL MPV 6.6 L (7.4-10.4) fL Neut % (Auto) 81.7 % Lymph % (Auto) 6.9 % Kay % (Auto) 6.9 % Eos % (Auto) 3.8 % Baso % (Auto) 0.7 % Absolute Neuts (auto) 7.9 H (1.5-7.7) 10^3/ul Absolute Lymphs (auto) 0.7 L (1.0-4.8) 10^3/ul Absolute Monos (auto) 0.7 (0-0.8) 10^3/ul Absolute Eos (auto) 0.4 (0-0.6) 10^3/ul Absolute Basos (auto) 0.1 (0-0.2) 10^3/ul Absolute Nucleated RBC 0.0 10^3/ul Nucleated RBC % 0.0 INR (Anticoag Therapy) (0.82-1.09) APTT (26.0-38.0) seconds Sodium 140 (135-145) mmol/L Potassium 3.9 (3.5-5.0) mmol/L Chloride 110 (101-111) mmol/L Carbon Dioxide 22 (22-32) mmol/L Anion Gap 8 (2-11) mmol/L BUN 23 (6-24) mg/dL Creatinine 1.18 H (0.67-1.17) mg/dL Est GFR ( Amer) 70.8 (>60) Est GFR (Non-Af Amer) 58.5 (>60) BUN/Creatinine Ratio 19.5 (8-20) Glucose 114 H (70-100) mg/dL Lactic Acid (0.5-2.0) mmol/L Calcium 8.8 (8.6-10.3) mg/dL Total Bilirubin 0.60 (0.2-1.0) mg/dL AST 21 (13-39) U/L ALT 14 (7-52) U/L Alkaline Phosphatase 60 (34-104) U/L Troponin I 0.01 (<0.03) ng/mL B-Natriuretic Peptide (<=100) pg/mL Total Protein 6.9 (6.4-8.9) g/dL Albumin 3.9 (3.2-5.2) g/dL Globulin 3.0 (2-4) g/dL Albumin/Globulin Ratio 1.3 (1-3) Influenza A (Rapid) Negative (Negative) Influenza B (Rapid) Negative (Negative) 05/25/19 05/25/19 05/25/19 Range/Units 06:00 06:00 06:00 WBC (3.5-10.8) 10^3/uL RBC (4.18-5.48) 10^6 /uL Hgb (14.0-18.0) g/dL Hct (42-52) % MCV (80-94) fL MCH (27-31) pg MCHC (31-36) g/dL RDW (10-15) % Plt Count (150-450) 10^3/uL MPV (7.4-10.4) fL Neut % (Auto) % Lymph % (Auto) % Kay % (Auto) % Eos % (Auto) % Baso % (Auto) % Absolute Neuts (auto) (1.5-7.7) 10^3/ul Absolute Lymphs (auto) (1.0-4.8) 10^3/ul Absolute Monos (auto) (0-0.8) 10^3/ul Absolute Eos (auto) (0-0.6) 10^3/ul Absolute Basos (auto) (0-0.2) 10^3/ul Absolute Nucleated RBC 10^3/ul Nucleated RBC % INR (Anticoag Therapy) 1.09 (0.82-1.09) APTT 33.1 (26.0-38.0) seconds Sodium (135-145) mmol/L Potassium (3.5-5.0) mmol/L Chloride (101-111) mmol/L Carbon Dioxide (22-32) mmol/L Anion Gap (2-11) mmol/L BUN (6-24) mg/dL Creatinine (0.67-1.17) mg/dL Est GFR ( Amer) (>60) Est GFR (Non-Af Amer) (>60) BUN/Creatinine Ratio (8-20) Glucose (70-100) mg/dL Lactic Acid 0.6 (0.5-2.0) mmol/L Calcium (8.6-10.3) mg/dL Total Bilirubin (0.2-1.0) mg/dL AST (13-39) U/L ALT (7-52) U/L Alkaline Phosphatase (34-104) U/L Troponin I (<0.03) ng/mL B-Natriuretic Peptide 290 H (<=100) pg/mL Total Protein (6.4-8.9) g/dL Albumin (3.2-5.2) g/dL Globulin (2-4) g/dL Albumin/Globulin Ratio (1-3) Influenza A (Rapid) (Negative) Influenza B (Rapid) (Negative) Microbiology and Other Data: Microbiology 05/26/19 05:47 Gram Stain - Final Sputum 05/25/19 17:15 Legionella Urinary Antigen - Final Urine Negative Legionella Antigen Streptococcus pneumoniae Ag Screen - Final Negative S. pneumo Antigen Assess/Plan/Problems-Billing Assessment: Mr. Thorne is an 88 y.o male with pmhx significant for htn, [place] 2003, and copd who presented to the ER with shortness of breath and leg swelling. - Patient Problems (1) Respiratory failure with hypoxia Comment: -likely a combination of RUL pneumonia, COPD exacerbation, diastolic HF exacerbation -20 IV lasix this a.m., this p.m.; then continue 20 IV daily -pt continues to improve daily -afebrile, no leukocytosis -continue azithro (day 3), ceftriaxone (day 5) -blood culture negative -urine negative for strep and legionella -sputum grew normal reshma -continue breathing treatments and supplemental oxygen as needed -appreciate pulmonology input, CT and Echo findings consistent with chronic hypoxia. Unable to determine chronicity of interstitial changes. -continue to attempt to get records -goal for D/C on O2 2-3L; currently at 3L at rest -follow up outpatient Technical Sales Associate for ongoing [place] imaging and treatment (2) Chest pain Comment: -pt reported CP this morning -appeared to be pleuritic according to previous examiner's note; relieved with nitro -EKG was without gross change -trop negative x1; will continue to trend x2 -recent stress test "months ago"- will request records (3) Fluid overload Comment: -with pleural effusions on CT -on lasix IV daily at 20mg daily -will add 1 extra dose this afternoon -Echo for pEF and diastilic dysfunction (4) COPD (chronic obstructive pulmonary disease) Comment: -will continue nebs -no wheeze on pulmonary exam today -continue prednisone 50 mg (day 2); plan for a total of 5 days (5) HTN (hypertension) Comment: -SBP 100-140's -continue imdur, lisinopril, metoprolol (6) Hypothyroid Comment: -continue levothyroxine (7) DVT prophylaxis Comment: -Lovenox (8) Full code status Status and Disposition: Discharge Home When Medically Stable. Hopefully in next 1-2 days.
[2019-05-30] MEDS: cefTRIAXone(*) 1 GM in NS 0.9% 50 ML* 50 ML IVPB SCH (12:13)
[2019-05-30] MEDS: Azithromycin IV(*) 250 MG in NS 0.9% 250 ML* 250 ML IVPB SCH (12:56)
[2019-05-30] MEDS ORDERED: Furosemide IV* 10 MG/ML 2 ML VIAL (20 MG) IV ONE (15:30)
[2019-05-31] MEDS: Levothyroxine TAB* 125 MCG TAB PO SCH (05:38)
[2019-05-31] MEDS: Enoxaparin(*) 40 MG/0.4 ML SYR SUBCUT SCH (08:45)
[2019-05-31] MEDS: Potassium Chloride* LIQUID 20 MEQ/15 ML UDC PO SCH (08:45)
[2019-05-31] MEDS: Furosemide IV* 10 MG/ML VIAL (40 MG) IV SLOW PU SCH (08:45)
[2019-05-31] MEDS: Lisinopril TAB* 10 MG PO SCH (08:46)
[2019-05-31] MEDS: Cyanocobalamin TAB* 500 MCG PO SCH (08:47)
[2019-05-31] MEDS: Aspirin EC TAB* 81 MG TAB.EC PO SCH (08:47)
[2019-05-31] MEDS: Tamsulosin CAP* 0.4 MG PO SCH (08:48)
[2019-05-31] MEDS: Atorvastatin* 80 MG TAB PO SCH (08:48)
[2019-05-31] MEDS: Cholecalciferol TAB* 1000 UNITS PO SCH (08:48)
[2019-05-31] MEDS: guaiFENesin ER TAB 600 MG PO SCH ×2 (08:49→20:25)
[2019-05-31] MEDS: amLODIPine TAB* 5 MG PO SCH (08:49)
[2019-05-31] MEDS: Isosorbide Mononitrate ER TAB* 60 MG PO SCH (08:49)
[2019-05-31] MEDS: Pantoprazole TAB * 40 MG TAB PO SCH (08:50)
[2019-05-31] MEDS: Metoprolol Tartrate TAB* 25 MG PO SCH ×2 (08:50→20:26)
[2019-05-31] MEDS: cefTRIAXone(*) 1 GM in NS 0.9% 50 ML* 50 ML IVPB SCH (12:30)
[2019-05-31] MEDS: Azithromycin IV(*) 250 MG in NS 0.9% 250 ML* 250 ML IVPB SCH (13:17)
--- NOTE | 2019-05-31 16:44 | PN ---
Subjective Date of Service: 05/31/19 Interval History: Mr. Thorne denies SOB, cough, fever, chills. He has had no recent episodes of chest pain. He is eager for discharge to home tomorrow morning and has no complaints at this time. Family History: Unchanged from Admission Social History: Unchanged from Admission Past Medical History: Unchanged from Admission Objective Active Medications: Acetaminophen (Tylenol Tab*) 650 mg PO Q6H PRN PRN Reason: MILD PAIN or TEMP > 100.4 Last Admin: 05/27/19 09:46 Dose: 650 mg Albuterol/Ipratropium (Duoneb (Albuterol 2.5 Mg/Ipratropium 0.5 Mg)) 1 neb INH Q4H PRN PRN Reason: SOB/WHEEZING Amlodipine Besylate (Norvasc Tab*) 10 mg PO DAILY [facility] Last Admin: 05/31/19 08:49 Dose: 10 mg Aspirin (Aspirin Ec Tab*) 81 mg PO DAILY [facility] Last Admin: 05/31/19 08:47 Dose: 81 mg Atorvastatin Calcium (Lipitor*) 80 mg PO DAILY [facility] Last Admin: 05/31/19 08:48 Dose: 80 mg Azithromycin (Zithromax Tab*) 250 mg PO 1200 [facility] Benzonatate (Tessalon Cap*) 100 mg PO BID PRN PRN Reason: COUGH Cholecalciferol (Vitamin D Tab*) 2,000 units PO DAILY [facility] Last Admin: 05/31/19 08:48 Dose: 2,000 units Cyanocobalamin (Vitamin B12 Tab*) 500 mcg PO DAILY [facility] Last Admin: 05/31/19 08:47 Dose: 500 mcg Enoxaparin Sodium (Lovenox(*)) 40 mg SUBCUT DAILY [facility] Last Admin: 05/31/19 08:45 Dose: 40 mg Furosemide (Lasix Iv*) 20 mg IV SLOW PU DAILY [facility] Last Admin: 05/31/19 08:45 Dose: 20 mg Guaifenesin (Mucinex*) 1,200 mg PO BID [facility] Last Admin: 05/31/19 08:49 Dose: 1,200 mg Azithromycin 250 mg/ Sodium (Chloride) 250 mls @ 250 mls/hr IVPB Q24H [facility] Stop: 05/31/19 18:00 Last Admin: 05/31/19 13:17 Dose: 250 mls/hr Ceftriaxone Sodium 1 gm/ (Sodium Chloride) 50 mls @ 200 mls/hr IVPB Q24H [facility] Last Admin: 05/31/19 12:30 Dose: 200 mls/hr Isosorbide Mononitrate (Imdur Er Tab*) 60 mg PO DAILY [facility] Last Admin: 05/31/19 08:49 Dose: 60 mg Levothyroxine Sodium (Synthroid Tab*) 125 mcg PO DAILY@0600 [facility] Last Admin: 05/31/19 05:38 Dose: 125 mcg Lisinopril (Prinivil Tab*) 40 mg PO DAILY [facility] Last Admin: 05/31/19 08:46 Dose: 40 mg Metoprolol Tartrate (Lopressor Tab*) 25 mg PO BID [facility] Last Admin: 05/31/19 08:50 Dose: 25 mg Nitroglycerin (Nitroglycerin Tab 0.4 Mg*) 0.4 mg SL Q5M PRN PRN Reason: ANGINA Last Admin: 05/30/19 04:25 Dose: 0.4 mg Ondansetron HCl (Zofran Inj*) 4 mg IV Q6H PRN PRN Reason: NAUSEA Pantoprazole Sodium (Protonix Tab*) 40 mg PO DAILY [facility] Last Admin: 05/31/19 08:50 Dose: 40 mg Potassium Chloride (Potassium Chloride Liquid) 40 meq PO DAILY [facility] Last Admin: 05/31/19 08:45 Dose: 40 meq Prednisone (Deltasone 50 Mg Tab) 50 mg PO DAILY [facility] Last Admin: 05/31/19 08:49 Dose: 50 mg Tamsulosin HCl (Flomax Cap*) 0.4 mg PO DAILY [facility] Last Admin: 05/31/19 08:48 Dose: 0.4 mg Vital Signs: Temp Pulse Resp BP Pulse Ox 97.9 F 51 20 94/47 96 05/31/19 15:15 05/31/19 15:15 05/31/19 15:15 05/31/19 15:15 05/31/19 15:15 Oxygen Devices in Use Now: Nasal Cannula Appearance: Mr. Thorne is an elderly white male who is sitting up in bed. He appears to be in no acute distress. He is breathing comfortably on 2L supplemental O2. Eyes: No Scleral Icterus, PERRLA Ears/Nose/Mouth/Throat: NL Teeth, Lips, Gums, Clear Oropharnyx, Mucous Membranes Moist Neck: NL Appearance and Movements; NL JVP, Trachea Midline Respiratory: Symmetrical Chest Expansion and Respiratory Effort, Clear to Auscultation Cardiovascular: NL Sounds; No Murmurs; No JVD, RRR, - - trace LE edema Abdominal: NL Sounds; No Tenderness; No Distention, No Hepatosplenomegaly Extremities: No Edema, No Clubbing, Cyanosis Neurological: Alert and Oriented x 3, NL Muscle Strength and Tone Result Diagrams: 05/29/19 06:18 05/30/19 04:55 Additional Lab and Data: Lab Results 05/25/19 05/25/19 05/25/19 Range/Units 05:46 06:00 06:00 WBC 9.6 (3.5-10.8) 10^3/uL RBC 3.58 L (4.18-5.48) 10^6 /uL Hgb 11.9 L (14.0-18.0) g/dL Hct 35 L (42-52) % MCV 97 H (80-94) fL MCH 33 H (27-31) pg MCHC 34 (31-36) g/dL RDW 15 (10-15) % Plt Count 222 (150-450) 10^3/uL MPV 6.6 L (7.4-10.4) fL Neut % (Auto) 81.7 % Lymph % (Auto) 6.9 % [place] % (Auto) 6.9 % Eos % (Auto) 3.8 % Baso % (Auto) 0.7 % Absolute Neuts (auto) 7.9 H (1.5-7.7) 10^3/ul Absolute Lymphs (auto) 0.7 L (1.0-4.8) 10^3/ul Absolute Monos (auto) 0.7 (0-0.8) 10^3/ul Absolute Eos (auto) 0.4 (0-0.6) 10^3/ul Absolute Basos (auto) 0.1 (0-0.2) 10^3/ul Absolute Nucleated RBC 0.0 10^3/ul Nucleated RBC % 0.0 INR (Anticoag Therapy) (0.82-1.09) APTT (26.0-38.0) seconds Sodium 140 (135-145) mmol/L Potassium 3.9 (3.5-5.0) mmol/L Chloride 110 (101-111) mmol/L Carbon Dioxide 22 (22-32) mmol/L Anion Gap 8 (2-11) mmol/L BUN 23 (6-24) mg/dL Creatinine 1.18 H (0.67-1.17) mg/dL Est GFR ( Amer) 70.8 (>60) Est GFR (Non-Af Amer) 58.5 (>60) BUN/Creatinine Ratio 19.5 (8-20) Glucose 114 H (70-100) mg/dL Lactic Acid (0.5-2.0) mmol/L Calcium 8.8 (8.6-10.3) mg/dL Total Bilirubin 0.60 (0.2-1.0) mg/dL AST 21 (13-39) U/L ALT 14 (7-52) U/L Alkaline Phosphatase 60 (34-104) U/L Troponin I 0.01 (<0.03) ng/mL B-Natriuretic Peptide (<=100) pg/mL Total Protein 6.9 (6.4-8.9) g/dL Albumin 3.9 (3.2-5.2) g/dL Globulin 3.0 (2-4) g/dL Albumin/Globulin Ratio 1.3 (1-3) Influenza A (Rapid) Negative (Negative) Influenza B (Rapid) Negative (Negative) 05/25/19 05/25/19 05/25/19 Range/Units 06:00 06:00 06:00 WBC (3.5-10.8) 10^3/uL RBC (4.18-5.48) 10^6 /uL Hgb (14.0-18.0) g/dL Hct (42-52) % MCV (80-94) fL MCH (27-31) pg MCHC (31-36) g/dL RDW (10-15) % Plt Count (150-450) 10^3/uL MPV (7.4-10.4) fL Neut % (Auto) % Lymph % (Auto) % [place] % (Auto) % Eos % (Auto) % Baso % (Auto) % Absolute Neuts (auto) (1.5-7.7) 10^3/ul Absolute Lymphs (auto) (1.0-4.8) 10^3/ul Absolute Monos (auto) (0-0.8) 10^3/ul Absolute Eos (auto) (0-0.6) 10^3/ul Absolute Basos (auto) (0-0.2) 10^3/ul Absolute Nucleated RBC 10^3/ul Nucleated RBC % INR (Anticoag Therapy) 1.09 (0.82-1.09) APTT 33.1 (26.0-38.0) seconds Sodium (135-145) mmol/L Potassium (3.5-5.0) mmol/L Chloride (101-111) mmol/L Carbon Dioxide (22-32) mmol/L Anion Gap (2-11) mmol/L BUN (6-24) mg/dL Creatinine (0.67-1.17) mg/dL Est GFR ( Amer) (>60) Est GFR (Non-Af Amer) (>60) BUN/Creatinine Ratio (8-20) Glucose (70-100) mg/dL Lactic Acid 0.6 (0.5-2.0) mmol/L Calcium (8.6-10.3) mg/dL Total Bilirubin (0.2-1.0) mg/dL AST (13-39) U/L ALT (7-52) U/L Alkaline Phosphatase (34-104) U/L Troponin I (<0.03) ng/mL B-Natriuretic Peptide 290 H (<=100) pg/mL Total Protein (6.4-8.9) g/dL Albumin (3.2-5.2) g/dL Globulin (2-4) g/dL Albumin/Globulin Ratio (1-3) Influenza A (Rapid) (Negative) Influenza B (Rapid) (Negative) Microbiology and Other Data: Microbiology 05/26/19 05:47 Gram Stain - Final Sputum 05/25/19 17:15 Legionella Urinary Antigen - Final Urine Negative Legionella Antigen Streptococcus pneumoniae Ag Screen - Final Negative S. pneumo Antigen Assess/Plan/Problems-Billing Assessment: Mr. Thorne is an 88 y.o male with pmhx significant for htn, [place] 2003, and copd who presented to the ER with shortness of breath and leg swelling. - Patient Problems (1) Respiratory failure with hypoxia Comment: -likely a combination of RUL pneumonia, COPD exacerbation, diastolic HF exacerbation -Lasix 20 IV today; transition to PO tomorrow -pt continues to improve daily -afebrile, no leukocytosis -continue azithro (day 4), ceftriaxone (day 6) -blood culture negative -urine negative for strep and legionella -sputum grew normal reshma -continue breathing treatments and supplemental oxygen as needed -appreciate pulmonology input, CT and Echo findings consistent with chronic hypoxia. Unable to determine chronicity of interstitial changes. -continue to attempt to get records -goal for D/C on O2 2-3L; currently at 2L at rest -follow up outpatient F[employer] Printing Machine Operator for ongoing chest imaging and treatment (2) Chest pain Comment: -pt reported CP this morning -appeared to be pleuritic according to previous examiner's note; relieved with nitro -EKG was without gross change -trop negative x1; will continue to trend x2 -last 2010 (3) Fluid overload Comment: -with pleural effusions on CT -on lasix IV daily at 20mg daily; transition to PO tomorrow -Echo for pEF and diastolic dysfunction (4) COPD (chronic obstructive pulmonary disease) Comment: -will continue nebs -no wheeze on pulmonary exam today -continue prednisone 50 mg (day 3); plan for a total of 5 days (5) HTN (hypertension) Comment: -SBP 100-140's -continue imdur, lisinopril, metoprolol, amlodipine (6) Hypothyroid Comment: -continue levothyroxine (7) DVT prophylaxis Comment: -Lovenox (8) Full code status Status and Disposition: Discharge Home When Medically Stable. Hopefully in next 1-2 days.
[2019-06-01] MEDS: Levothyroxine TAB* 125 MCG TAB PO SCH (05:47)
[2019-06-01] MEDS: Potassium Chloride* LIQUID 20 MEQ/15 ML UDC PO SCH (08:29)
[2019-06-01] MEDS: Lisinopril TAB* 10 MG PO SCH (08:30)
[2019-06-01] MEDS: Metoprolol Tartrate TAB* 25 MG PO SCH (08:30)
[2019-06-01] MEDS: Pantoprazole TAB * 40 MG TAB PO SCH (08:30)
[2019-06-01] MEDS: Enoxaparin(*) 40 MG/0.4 ML SYR SUBCUT SCH (08:30)
[2019-06-01] MEDS: Tamsulosin CAP* 0.4 MG PO SCH (08:30)
[2019-06-01] MEDS: Cyanocobalamin TAB* 500 MCG PO SCH (08:30)
[2019-06-01] MEDS: Aspirin EC TAB* 81 MG TAB.EC PO SCH (08:30)
[2019-06-01] MEDS: guaiFENesin ER TAB 600 MG PO SCH (08:30)
[2019-06-01] MEDS: amLODIPine TAB* 5 MG PO SCH (08:31)
[2019-06-01] MEDS: Isosorbide Mononitrate ER TAB* 60 MG PO SCH (08:31)
[2019-06-01] MEDS: Cholecalciferol TAB* 1000 UNITS PO SCH (08:31)
[2019-06-01] MEDS: Atorvastatin* 80 MG TAB PO SCH (08:31)
[2019-06-01] MEDS ORDERED: Furosemide TAB* 20 MG PO SCH (09:00)
[2019-06-01] MEDS: cefTRIAXone(*) 1 GM in NS 0.9% 50 ML* 50 ML IVPB SCH (11:06)
[2019-06-01] MEDS ORDERED: Azithromycin TAB* 250 MG PO SCH (12:00)
--- NOTE | 2019-06-01 13:14 | PN ---
Progress Note - Progress Note Date of Service: 06/01/19 - Pulm f/u note Note: Pt seen and examined at bedside. Pt reports feeling better. Denies significant SOB or cough Active Medications Generic Name Dose Route Start Last Admin Trade Name Freq PRN Reason Stop Dose Admin Acetaminophen 650 mg 05/25/19 09:43 05/27/19 09:46 Tylenol Tab* PO 650 mg Q6H PRN Administration MILD PAIN or TEMP > 100.4 Albuterol/Ipratropium 1 neb 05/25/19 20:22 Duoneb (Albuterol 2.5 Mg/Ipratropium 0.5 Mg) INH Q4H PRN SOB/WHEEZING Amlodipine Besylate 10 mg 05/26/19 09:00 06/01/19 08:31 Norvasc Tab* PO 10 mg DAILY [facility] Administration Aspirin 81 mg 05/26/19 09:00 06/01/19 08:30 Aspirin Ec Tab* PO 81 mg DAILY [facility] Administration Atorvastatin Calcium 80 mg 05/26/19 09:00 06/01/19 08:31 Lipitor* PO 80 mg DAILY [facility] Administration Azithromycin 250 mg 06/01/19 12:00 06/01/19 11:06 Zithromax Tab* PO 250 mg 1200 [facility] Administration Benzonatate 100 mg 05/25/19 09:43 Tessalon Cap* PO BID PRN COUGH Cholecalciferol 2,000 units 05/26/19 09:00 06/01/19 08:31 Vitamin D Tab* PO 2,000 units DAILY [facility] Administration Cyanocobalamin 500 mcg 05/26/19 09:00 06/01/19 08:30 Vitamin B12 Tab* PO 500 mcg DAILY [facility] Administration Enoxaparin Sodium 40 mg 05/25/19 10:00 06/01/19 08:30 Lovenox(*) SUBCUT 40 mg DAILY [facility] Administration Furosemide 20 mg 06/01/19 09:00 06/01/19 08:30 Lasix Tab* PO 20 mg DAILY [facility] Administration Guaifenesin 1,200 mg 05/25/19 21:00 06/01/19 08:30 Mucinex* PO 1,200 mg BID [facility] Administration Ceftriaxone Sodium 1 gm/ 50 mls @ 200 mls/hr 05/29/19 11:30 06/01/19 11:06 Sodium Chloride IVPB 200 mls/hr Q24H [facility] Administration Isosorbide Mononitrate 60 mg 05/26/19 09:00 06/01/19 08:31 Imdur Er Tab* PO 60 mg DAILY [facility] Administration Levothyroxine Sodium 125 mcg 05/26/19 06:00 06/01/19 05:47 Synthroid Tab* PO 125 mcg DAILY@0600 [facility] Administration Lisinopril 40 mg 05/26/19 09:00 06/01/19 08:30 Prinivil Tab* PO 40 mg DAILY [facility] Administration Metoprolol Tartrate 12.5 mg 05/31/19 21:00 06/01/19 08:30 Lopressor Tab* PO 12.5 mg BID [facility] Administration Nitroglycerin 0.4 mg 05/30/19 04:23 05/30/19 04:25 Nitroglycerin Tab 0.4 Mg* SL 0.4 mg Q5M PRN Administration ANGINA Ondansetron HCl 4 mg 05/25/19 09:43 Zofran Inj* IV Q6H PRN NAUSEA Pantoprazole Sodium 40 mg 05/26/19 09:00 06/01/19 08:30 Protonix Tab* PO 40 mg DAILY [facility] Administration Potassium Chloride 40 meq 05/28/19 09:00 06/01/19 08:29 Potassium Chloride Liquid PO 40 meq DAILY [facility] Administration Prednisone 50 mg 05/29/19 11:00 06/01/19 08:30 Deltasone 50 Mg Tab PO 50 mg DAILY [facility] Administration Tamsulosin HCl 0.4 mg 05/27/19 09:00 06/01/19 08:30 Flomax Cap* PO 0.4 mg DAILY [facility] Administration Vital Signs Temp Pulse Resp BP Pulse Ox 97.7 F 57 16 122/55 98 06/01/19 11:15 06/01/19 11:15 06/01/19 11:15 06/01/19 11:15 06/01/19 11:15 O/E: Pt in NAD HEENT: PERRLA Lungs: Improved air entry b/l CVS: S1, S2+ Abd: Soft, BS+ Ext: Normal ROM Skin: no rash Neuro: NO focal deficits Laboratory Results - last 24 hr 06/01/19 12:30 Troponin I 0.01 I/R: 88 y o m former smoker with h/o occupational exposures including possible asbestos a/w worsening SOB, fatigue. 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
--- NOTE | 2019-06-01 15:36 | DS ---
CC: Baldev Flores NP; Dr. Ronald Butler * DISCHARGE SUMMARY: DATE OF ADMISSION: 05/25/19 DATE OF DISCHARGE: 06/01/19 PRIMARY CARE PROVIDER: Baldev Flores NP. SACK FILLER: Dr. Ronald Butler. ATTENDING PHYSICIAN: Dr. Susan Christian * (dictated by JAZZ Oliver). PRIMARY DIAGNOSES: 1. Right upper lobe pneumonia. 2. Acute respiratory failure with hypoxia. 3. Diastolic heart failure exacerbation. 4. Chest pain. DISCHARGE MEDICATIONS: Home Medications: 1. Albuterol HFA inhaler 1 puff q.4 hours p.r.n. 2. Amlodipine 10 mg p.o. daily. 3. Aspirin 81 mg p.o. daily. 4. Atorvastatin 80 mg p.o. daily. 5. Cholecalciferol 2000 units p.o. daily. 6. Cyanocobalamin 500 mcg p.o. daily. 7. Fluticasone/salmeterol 250/50 one puff p.o. b.i.d. 8. Isosorbide mononitrate ER 60 mg p.o. daily. 9. Levothyroxine 125 mcg p.o. daily. 10. Lisinopril 40 mg p.o. daily. 11. Pantoprazole 20 mg p.o. daily. 12. Potassium chloride 30 mEq p.o. daily. 13. Tamsulosin 0.4 mg p.o. daily. [place] medications: 1. Furosemide 20 mg p.o. daily. 2. Metoprolol tartrate 12.5 mg p.o. b.i.d. (changed from 25 mg p.o. b.i.d.). 3. Prednisone 50 mg p.o. daily x1 dose on 06/02/19. CONSULTATIONS WHILE IN THE HOSPITAL: Pulmonology: Abnormal chest x-ray/CT. Differentials include pneumonia, exacerbation of interstitial lung disease given occupational exposure in the past. The patient does appear to have pneumonia, possibility of bronchiolitis obliterans with organized pneumonia or cryptogenic organized pneumonia also, does not appear to be in acute exacerbation at this time. Repeat chest x-ray showed progression. I do not think there is significant change, could be more related to fluid on top of underlying pneumonia. Recommend current antibiotics. Encourage cough, deep breathing, and expectoration of phlegm. Encourage flutter device, titrate O2 as tolerated. Hypoxemic respiratory failure, I think more indicative of acute on chronic hypoxemic respiratory failure. Signs of pulmonary hypertension. Also reports chronic lower extremity edema, which could be indicative of cor pulmonale requiring higher O2 at this time likely secondary to pneumonia and acute opacities. Bilateral pleural effusions, continue to diurese, titrate O2. STUDIES WHILE IN THE HOSPITAL: 1. Chest x-ray. Impression: Right upper lobe pneumonia. Left lower lobe pneumonia with bilateral pleural effusions. 2. CTA of the chest. Impression: Limited study, no evidence for central pulmonary embolism. Right upper lobe infiltrate suggestive of pneumonia. Recommend followup chest x-rays to resolution. Findings most consistent with superimposed pulmonary edema. Findings suggestive of pulmonary artery hypertension. 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 3. Transthoracic echocardiogram. Summary: LV cavity size normal, wall thickness mildly increased, systolic function normal, estimated EF 60% to 65%, minimal area of hypokinesis of the distal apical inferior and distal inferior apical myocardium, consider apical thinning/normal variant versus small remote infarct, features consistent with pseudo-normal left ventricular filling pattern with concomitant abnormal relaxation and increased filling pressure, grade 2 diastolic dysfunction, RV systolic pressure moderately increased, LA severely dilated, atrial septum appears aneurysmal, PFO is demonstrated, mild MS , mild , mild TR, mildly dilated ascending aorta. There is a pleural effusion. Systolic pressure moderately increased. 4. Bilateral lower extremity Doppler. Impression: No evidence for deep venous thrombosis. 5. Chest x-ray. Impression: Worsening right upper lobe pneumonia, relative to chest x-ray acquired 2 days earlier. HISTORY OF PRESENT ILLNESS/HOSPITAL COURSE: Mr. Thorne is an 88-year-old male with a past medical history of COPD, CAD, with history of [place], hypertension , hypothyroidism, who presented to the ER on 05/25/19 with complaints of shortness of breath x1 week with associated bilateral lower extremity edema, decreased exercise tolerance. For full and complete details, please see the history and physical dictated by JAZZ Atkins, but in short, the patient presents with the above complaints. He was admitted for acute hypoxic respiratory failure likely due to pneumonia and heart failure exacerbation and COPD. The patient was started on doxycycline and ceftriaxone for pneumonia. Urinary antigens negative for Strep pneumo and Legionella. Sputum culture shows normal reshma. The patient was eventually transitioned to azithromycin and has completed a 5-day course of azithromycin and a 7-day course of ceftriaxone. His leukocytosis has resolved. He has been afebrile throughout his entire stay. At the time of discharge, he denies cough, fever, chills. He denies shortness of breath, but is noted to be on 2 L supplemental oxygen at this time. He reports no dyspnea on exertion or postural nocturnal dyspnea. With regards to his COPD exacerbation, he was treated with 5 days of p.o. prednisone 50 mg, this course will be finished on 06/02/19, one dose of prednisone 50 was sent to his pharmacy in [place]. During the patient's stay , he received an echo, which showed grade 2 diastolic dysfunction. The patient was treated with IV Lasix. At the time of discharge, he was transitioned to p.o. Lasix. He received potassium supplementation throughout his stay and his potassium remained within normal limits. It is suggested that he continue p.o. Lasix 20 mg and recheck his BMP at discharge to ensure potassium supplementation is adequate. With the addition of this diuretic, the patient had some very mild hypotension. He was also noted to have a heart rate in the 50s. Because of this, the patient's metoprolol was halved from 25 b.i.d. to 12.5 b.i.d. with good results. The patient's heart rate is in the 60s and his blood pressure is relatively well controlled. The patient did complain of an episode of chest pain, which he notes occurs at times. He typically takes nitro, which relieves his pain. Troponins were measured and were negative x3. An EKG was obtained showing a rate of 68, normal sinus rhythm with PACs. There are no ST depressions or elevations noted. His chest pain was resolved with 1 dose of nitro. It is recommended that the patient follow up with his growth hacker as he would benefit from an outpatient stress test. At the time of discharge, the patient has no complaints. He denies cough, fever, chills, shortness of breath. He denies chest pain, headache, dizziness, lightheadedness. Denies abdominal pain, nausea , vomiting, diarrhea, constipation, myalgias, or arthralgias. He had a bowel movement today. He is urinating without difficulty or dysuria. He is eating well and has been up to the bathroom as well as ambulating the halls in the past few days. He is eager for discharge home. He will be sent home with home oxygen. Mr. Thorne is stable for discharge home. PHYSICAL EXAM: Vital Signs: Temperature 97.4 temporal, heart rate 61, respiratory rate 16, oxygen saturation 100% on 2 L, blood pressure 145/67. General: Mr. Thorne is a well-developed, well-nourished, average weight, elderly white male who is sitting up in bed. He appears to be in no acute distress. He is breathing comfortably on 2 L supplemental oxygen per nasal cannula. HEENT: PERRL, EOMI. Visual bush grossly intact. Nonicteric sclerae. Hearing is mildly diminished. Oral mucous membranes are moist. There are no lesions. The pharynx is clear. The tongue is at midline. Palate elevates symmetrically. Cardiovascular: Regular rate and rhythm with S1, S2 present. No murmurs, rubs, clicks, or gallops. There is no JVD. There is very minimal trace lower extremity edema. Pulmonary: Symmetrical chest expansion without use of accessory muscles, clear to auscultation bilaterally without rhonchi, wheezes, rales. Abdomen: Bowel sounds in all quadrants. Soft , nontender to palpation. Musculoskeletal: Full range of motion without pain or deformities. Neuro: The patient is awake. He is alert and oriented x3. Cranial nerves II through XII are grossly intact. He is able to move all of his extremities. His motor strength is 5/5 bilaterally in upper and lower extremities. DISCHARGE PLAN: Mr. Thorne will be discharged home. CONDITION: Good. DIET: Heart healthy. ACTIVITY: As tolerated. MEDICATIONS: 1. You have 1 dose of prednisone left to be taken 06/02/19. 2. Your dose of metoprolol has been halved to 12.5 mg p.o. b.i.d. 3. Continue oxygen, please use O2 with CPAP as well. EDUCATION: 1. Repeat BMP within 4 to 7 days and prior to appointment with primary care provider. 2. Log blood pressure daily and bring log to next primary care provider appointment. 3. Follow up with primary care provider in 4 to 7 days. 4. Follow up with growth hacker in 4 to 7 days. Discuss recent hospitalization , recent echo results, need for outpatient stress testing. 5. Follow up with Pulmonology within 1 month. 6. Return to the ER or the nearest hospital if you experience any return or worsening of symptoms, chest pain or discomfort, dizziness, lightheadedness, loss of consciousness, high fevers, chills, night sweats or any other worrisome signs or symptoms. This is a summarized report of a complex medical history and hospital stay. For further details, please see the entire medical record. TIME SPENT: Approximately 35 minutes was spent on this discharge, greater than half of that time was spent [id number] with the patient discussing discharge plans and instructions. JAZZ ESPINOZA [id number]/[facility] #: [id number]
[2019-06-01 15:49] VITALS: BP 102/58
== END 2019-06-01 16:46 | disposition home or self-care (01) | DRG 193 ==
LOC: ED 05:39 → MEDTELE 09:43
PROVIDERS: ADMIT Internal Medicine; ATTEND Internal Medicine
DX: J18.9 Pneumonia, unspecified organism (principal); J96.01 Acute respiratory failure with hypoxia; I50.33 Acute on chronic diastolic (congestive) heart failure; J44.0 Chronic obstructive pulmonary disease with (acute) lower respiratory infection; J44.1 Chronic obstructive pulmonary disease with (acute) exacerbation; I11.0 Hypertensive heart disease with heart failure; I25.10 Atherosclerotic heart disease of native coronary artery without angina pectoris; E03.9 Hypothyroidism, unspecified; K21.9 Gastro-esophageal reflux disease without esophagitis; E78.5 Hyperlipidemia, unspecified; I27.20 Pulmonary hypertension, unspecified; R07.9 Chest pain, unspecified; Z87.891 Personal history of nicotine dependence; Z99.81 Dependence on supplemental oxygen; I25.2 Old myocardial infarction; Z95.5 Presence of coronary angioplasty implant and graft; Z88.1 Allergy status to other antibiotic agents; Z79.890 Hormone replacement therapy; Z79.82 Long term (current) use of aspirin; Z79.51 Long term (current) use of inhaled steroids; Z79.899 Other long term (current) drug therapy; I95.9 Hypotension, unspecified
CPT/HCPCS: 36415; 36600; 71045; 71275; 80048; 80053; 82607; 82746; 82803; 83605; 83735; 83880; 84484; 85025; 85027; 85610; 85730; 87070; 87205; 87899; 93005; 93306; 93970; 94640; 94660; 96374; 99285; A9270-GY; J0456; J0692; J0696; J1650; J1940; J2930; J3475; J7512; Q9967